=== PATIENT | female | born 1945 | race Caucasian/White ===

== ENCOUNTER 2022-05-22 16:33 | Emergency (ER) | payer MEDICARE, SELFPAY ==
[2022-05-22] VITALS (7 sets, daily range): BP systolic 124–176; BP diastolic 64–140; PULSE 78–89; RESP 18–19; TEMP 36.8; O2SAT 94–98; BMI 26.0
[2022-05-22 16:50] LABS: Appearance,Urine CLEAR (Clear); Bilirubin,Urine Negative (Negative); Blood, Urine TRACE-I (Negative); Color,Urine YELLOW (Yellow); Glucose,Urine (UA) Negative (Negative); Ketones,Urine Negative (Negative); Leukocyte Esterase,Urine 2+ (Negative); Microscopic, Urine URINE MICROSCOPIC (MICROSCOPIC); Nitrate,Urine Negative (Negative); Protein,Urine Negative (Negative); Urobilinogen,Urine 0.2 EU/dl (0.2)
--- NOTE | 2022-05-22 17:04 | CT_ITS ---
PROCEDURE INFORMATION: Exam: CT Cervical Spine Without Contrast Exam date and time: 05/22/2022 5:32 PM Age: 76 years old Clinical indication: Injury or trauma; Fall; Blunt trauma TECHNIQUE: Imaging protocol: Computed tomography of the cervical spine without contrast. Radiation optimization: All CT scans at this facility use at least one of these dose optimization techniques: automated exposure control; mA and/or kV adjustment per patient size (includes targeted exams where dose is matched to clinical indication); or iterative reconstruction. REPORTING DATA: Count of CT and Cardiac NM exams in prior 12 months: This patient has received 2 known CTs and 0 known cardiac nuclear medicine studies in the 12 months prior to the current study. COMPARISON: CT HEAD/BRAIN WO CON 05/22/2022 5:25 PM FINDINGS: Bones/joints: Mild scoliosis of the cervical spine convexity to the left. Osteopenia. Lungs: Lung apices are normal. Soft tissues: Unremarkable. Other findings: Extensive bilateral calcified plaque. IMPRESSION: 1. No evidence of acute osseous injury. 2. Atherosclerotic vascular disease. Findings inadequately visualized . Consider follow-up with carotid Doppler ultrasound.
--- NOTE | 2022-05-22 17:04 | CT_ITS ---
PROCEDURE INFORMATION: Exam: CT Head Without Contrast Exam date and time: 05/22/2022 5:25 PM Age: 76 years old Clinical indication: Injury or trauma; Fall TECHNIQUE: Imaging protocol: Computed tomography of the head without contrast. Radiation optimization: All CT scans at this facility use at least one of these dose optimization techniques: automated exposure control; mA and/or kV adjustment per patient size (includes targeted exams where dose is matched to clinical indication); or iterative reconstruction. REPORTING DATA: Count of CT and Cardiac NM exams in prior 12 months: This patient has received 2 known CTs and 0 known cardiac nuclear medicine studies in the 12 months prior to the current study. COMPARISON: No relevant prior studies available. FINDINGS: Brain: No intracranial hemorrhage. No evidence of acute territorial infarct or cerebral edema. Moderate prominence of the cortical sulci consistent with moderate intracerebral volume loss. Periventricular white matter tract changes consistent with microvascular disease. No mass effect or midline shift. Cerebral ventricles: No ventriculomegaly. Paranasal sinuses: Visualized sinuses are unremarkable. No fluid levels. Mastoid air cells: Visualized mastoid air cells are well aerated. Bones/joints: Unremarkable. No acute fracture. Soft tissues: Unremarkable. IMPRESSION: No evidence of acute intracranial abnormality.
--- NOTE | 2022-05-22 17:04 | CT_ITS ---
PROCEDURE INFORMATION: Exam: CT Lumbar Spine Without Contrast Exam date and time: 05/22/2022 5:37 PM Age: 76 years old Clinical indication: Injury or trauma; Fall TECHNIQUE: Imaging protocol: Computed tomography of the lumbar spine without contrast. Radiation optimization: All CT scans at this facility use at least one of these dose optimization techniques: automated exposure control; mA and/or kV adjustment per patient size (includes targeted exams where dose is matched to clinical indication); or iterative reconstruction. REPORTING DATA: Count of CT and Cardiac NM exams in prior 12 months: This patient has received 3 known CTs and 0 known cardiac nuclear medicine studies in the 12 months prior to the current study. COMPARISON: CT THORACIC SPINE WO CON 05/22/2022 5:34 PM FINDINGS: Tubes, catheters and devices: Incompletely visualized is a catheter in the right posterior parasagittal lumbar soft tissues entering a right sacral foramen, incompletely visualized. Bones/joints: The thoracolumbar spine demonstrates mild to moderate discogenic and spondylitic degenerative changes at multiple levels. This is predominantly manifest by endplate discogenic degenerative changes and marginal osteophytes as well as Schmorl's node degenerative changes. Multilevel facet degenerative arthropathy is present, most prominent involving the mid to lower lumbar spine. Mild vacuum disc phenomenon is also present at L4-L5 and L5-S1 and also at T11-12. There is grade 1 anterior spondylolisthesis of L3 on L4. Alignment is otherwise intact. Concavity of the superior endplate of L1 is present with Schmorl's node changes in this region. Remaining lumbar vertebral body heights are intact. There is no evidence of acute fracture. There are mild to moderate degenerative changes of the sacroiliac joints. Findings within the lower thoracic spine are described in the associated CT of the thoracic spine report from the same date and time. Please reference that report for additional information. Mild diffuse annular bulge at the L1-L2 level is present. No focal disc protrusion. No significant neural foraminal narrowing. Mild to moderate diffuse annular bulge is present at the L2-L3 level without focal disc protrusion. There is minor bilateral inferior neural foraminal narrowing. Moderate diffuse annular bulge at the L3-L4 level produces moderate ventral effacement upon the thecal sac and moderate central canal stenosis. This is accentuated by anterior spondylolisthesis of L3 on L4. There is moderate to marked bilateral neural foraminal narrowing at this level. Moderate diffuse annular bulge at the L4-L5 level produces moderate ventral effacement upon the thecal sac and moderate central canal stenosis. There is moderate to severe bilateral neural foraminal narrowing at this level. Moderate posterior annular bulge is present at the L5-S1 level, approximating the originating S1 nerve roots. There is moderate to marked bilateral neural foraminal narrowing. Stomach and bowel: Mild diverticulosis is present in the distal colon. No definite diverticulitis. Vasculature: The aorta and iliac arteries demonstrate severe atherosclerotic calcification. Atherosclerotic vascular calcifications involve the origin of the celiac and SMA arteries as well as bilateral renal arteries. Cannot entirely exclude stenosis.. Soft tissues: No significant soft tissue edema. No focal soft tissue hematomas. IMPRESSION: 1. No acute posttraumatic osseous abnormality. 2. [id number] discogenic and spondylitic degenerative changes of the lumbar spine
--- NOTE | 2022-05-22 17:04 | XR_ITS ---
PROCEDURE INFORMATION: Exam: XR Chest Exam date and time: 05/22/2022 5:31 PM Age: 76 years old Clinical indication: Injury or trauma; Fall; Blunt trauma (contusions or hematomas) TECHNIQUE: Imaging protocol: Radiologic exam of the chest. Views: 1 view. COMPARISON: No relevant prior studies available. FINDINGS: Lungs: See Diaphragm finding. Pleural spaces: Minimal pleural reactive changes right lateral chest wall. Subtle cortical irregularity. Fractures in this region could not be excluded. Blunting of the left costophrenic angle. Findings may reflect pleural reactive change and be exaggerated by patient positioning. An underlying pleural effusion could not be excluded. Heart/Mediastinum: Cardiomegaly. Diaphragm: Indistinctness of the left hemidiaphragm. A lower lobe region of consolidation or possible hiatal hernia should be considered. Bones/joints: See Pleural spaces finding. IMPRESSION: 1. Minimal pleural reactive changes right lateral chest wall. Subtle cortical irregularity. Fractures in this region could not be excluded. 2. Recommend dedicated rib series for further evaluation. 3. Blunting of the left costophrenic angle. Findings may reflect pleural reactive change and be exaggerated by patient positioning. An underlying pleural effusion could not be excluded.
--- NOTE | 2022-05-22 17:04 | CT_ITS ---
PROCEDURE INFORMATION: Exam: CT Thoracic Spine Without Contrast Exam date and time: 05/22/2022 5:34 PM Age: 76 years old Clinical indication: Injury or trauma; Fall TECHNIQUE: Imaging protocol: Computed tomography of the thoracic spine without contrast. Radiation optimization: All CT scans at this facility use at least one of these dose optimization techniques: automated exposure control; mA and/or kV adjustment per patient size (includes targeted exams where dose is matched to clinical indication); or iterative reconstruction. REPORTING DATA: Count of CT and Cardiac NM exams in prior 12 months: This patient has received 3 known CTs and 0 known cardiac nuclear medicine studies in the 12 months prior to the current study. COMPARISON: CT CERVICAL SPINE WO CON 05/22/2022 5:32 PM FINDINGS: Bones/joints: There is mild diffuse osteopenia. The thoracic spine demonstrates moderate discogenic and spondylitic degenerative changes at multiple levels. This is predominantly manifest by endplate discogenic degenerative changes and marginal osteophytes. Variable levels of vacuum disc phenomenon are also present, most noted in the midthoracic spine. Mild facet degenerative arthropathy . Schmorl's node degenerative changes are present at the T10 through L2 levels. Concavity of the superior endplate of L2 is present with Schmorl's node changes in this region. There is mild loss of vertebral body height involving T5, likely chronic. L0. No acute fractures. There is increase in thoracic kyphosis. There is an S shaped thoracolumbar scoliosis. [id number]-[id number] central posterior disc bulge at the T8-9 and T9-10 levels produce mild to moderate ventral effacement upon the thecal sac. Diffuse annular bulge with mild central posterior bulge at the T10-11 level produces mild ventral effacement upon the thecal sac. Soft tissues: No focal soft tissue hematomas. Vasculature: The aorta demonstrates moderate atherosclerotic calcification. Evaluation is limited without intravenous contrast. Atherosclerotic vascular calcifications involve the origin of the great vessels. Cannot exclude stenosis. The descending thoracic aorta is at the upper limits of normal. Lungs: There is a pulmonary parenchymal calcification consistent with remote granulomatous organism exposure. Scattered strandy densities in the right upper lobe and lingula may reflect parenchymal scarring or atelectasis. Pleural spaces: No pneumothorax. No effusions. Heart: The heart is mildly enlarged. There is a small pericardial effusion. Stomach and bowel: A moderate to large hiatal hernia is present, incompletely visualized. There is an organo-axial configuration to the intrathoracic stomach. Other findings: There is moderate elevation of the right hemidiaphragm. There has been a cholecystectomy.There is calcification of the mitral valve annulus. There is calcification of the aortic valve annulus. There is severe atherosclerotic calcification of the coronary arteries. Evaluation of the chest and abdomen is limited due to the lack of intravenous and gastrointestinal contrast. IMPRESSION: 1. No acute posttraumatic osseous abnormality. 2. Minor loss of vertebral body height involving T5 is likely chronic. 3. Zzkb-ey-wxgrldar superior concavity to the L1 vertebral body, likely chronic. 4. Moderate discogenic and spondylitic degenerative changes of the thoracic spine with increase in thoracic kyphosis. 5. Mild cardiomegaly with mild pericardial fluid. 6. Moderate to large hiatal hernia with organoaxial configuration of the intrathoracic stomach. 7. Moderate central posterior disc protrusions at
--- NOTE | 2022-05-22 17:06 | HMH.EDGENADL ---
Discharge Plan Disposition Patient Disposition: Home, Self-Care Condition: Good Prescriptions Prescriptions: New cefdinir 300 mg capsule 300 mg PO BID 10 Days Qty: 20 0RF No Action lorazepam [Ativan] 0.5 mg tablet 0.5 mg PO TID PRN (Reason: anxiety) Qty: 63 0RF Referrals Follow up/Referrals: Sly Ny MD [Primary Care Provider] - See instructions Activity Restrictions/Add. Instructions Additional Instructions/Restrictions: Tylenol as needed for pain. Follow-up with primary care provider for further care. Additional instructions for URINARY TRACT INFECTION: Take antibiotic as prescribed. See your physician in 2-3 days for follow up and culture results. Return immediately if you have an uncontrollable fever greater than 102 degrees, severe back or abdominal pain, inability to urinate, or repetitive vomiting. Clinical Impressions Clinical Impression: Fall, Dizziness, Closed rib fracture, Urinary tract infection, Atrial fibrillation, chronic, Anemia Instructions Patient Instructions: DI for Rib Fracture, DI for Urinary Tract Infection (UTI), DI for Iron Deficiency Anemia-Adult, How to Prevent Falls, DI for Dizziness-Nonvertigo Discharge ED Provider: Isak Bennett General Adult HPI General Chief complaint: Fall Stated complaint: Fall Time Seen by Provider: 05/22/22 17:00 Mode of Arrival: Ambulatory Source of Information: Patient Limitations: Physical Limitations Description of Symptoms (Recalled from ER Triage Doc. by RN): Pt from [facility], reports I felt dizzy while standing and told them and they just watched me fall , denies LOC, reports striking posterior occiput, EMV 15 History of Present Illness HPI narrative: Brought in by ambulance from [facility]. States that she was standing talking to a couple of nurses and began feeling very dizzy. He states that she told him she was feeling dizzy but the next thing she knew she was lying flat on her back on the floor. She says that she hit her head. She does have a headache. She has some soreness in her lower back. She denies any other injuries. No nausea or vomiting. States she has not recently been ill preceding this. States she does have a prior history of dizzy spells. She had 1 view x-rays of her cervical, thoracic, and lumbar spine and was sent to the emergency department for further imaging and work-up. She has a history of atrial fibrillation and is anticoagulated with Eliquis. Related Data Previous Rx's Medication Instructions Recorded lorazepam 0.5 mg tablet (Ativan) 0.5 mg PO TID PRN anxiety #63 tabs 05/13/22 cefdinir 300 mg capsule 300 mg PO BID 10 days #20 caps 05/22/22 Allergies Allergy/AdvReac Type Severity Reaction Status Date / Time Unable to Assess Allergy Unverified 05/13/22 14:22 [facility] Disclaimer: The information contained in this section may have been updated after the patient was seen, as this information can be updated by other users. Social History Smoking Status: Never smoker ROS Obtained: Yes Systems reviewed as appropriate & no additional complaints except as documented Constitutional Constitutional: Denies fever(s), Reports headache(s) and Denies weakness Eyes Eyes: Denies change in vision ENT Ears, Nose, Mouth, and Throat: Reports dizziness, Reports headache(s), Denies nasal discharge and Denies sore throat Cardiovascular Cardiovascular: Denies chest pain Respiratory Respiratory: Denies shortness of breath and Denies cough Gastrointestinal Gastrointestingal: Denies abdominal pain, constipation, diarrhea or vomiting Genitourinary Female Genitourinary: Denies difficulty voiding, Denies dysuria and Denies flank pain Musculoskeletal Musculoskeletal: Denies numbness Neurologic Neurologic: Reports dizziness, Reports headache(s), Denies numbness and Denies weakness Physical Exam General General appearance: alert and in no apparent distress Head Head exam: a
--- NOTE | 2022-05-22 17:16 | ECG_ITS ---
APPROVED REPORT Exam: Resting ECG HR:73 bpm ECG Measurements Heart Rate 73 AXES QRSd 94 QRS 82 QT 398 T 15 QTc 424 Conclusion ATRIAL FIBRILLATION NONSPECIFIC ST & T-WAVE ABNORMALITY ABNORMAL RHYTHM ECG UNCONFIRMED REPORT Electronically signed by : Chris Duncan MD 05/23/2022 15:39:30
[2022-05-22 17:24] LABS: Bacteria,Urine Trace /lpf; RBC,Urine Occasional #/hpf (0-3); Squamous Epithelial Cell,Urine Occasional #/hpf (0-5)
--- NOTE | 2022-05-22 17:24 | XR_ITS ---
PROCEDURE INFORMATION: Exam: XR Pelvis Exam date and time: 05/22/2022 5:54 PM Age: 76 years old Clinical indication: Injury or trauma; Fall; Blunt trauma (contusions or hematomas); Bilateral; Hip TECHNIQUE: Imaging protocol: Radiologic exam of the pelvis. Views: 1 or 2 view. COMPARISON: CT LUMBAR SPINE WO CON 05/22/2022 5:37 PM FINDINGS: Bones/joints: Postoperative changes involving the right hip are present in near anatomic alignment. As seen, there are mild degenerative changes of the sacroiliac joints. There is mild diffuse osteopenia. The thoracolumbar spine demonstrates mild degenerative changes at multiple levels. There is no evidence of acute fracture or dislocation. Soft tissues: The visualized iliac arteries demonstrate mild atherosclerotic calcification. Gastrointestinal tract: Visualized bowel gas pattern is within range of normal. Other findings: Battery pack overlying the right superior hip region limits evaluation of adjacent structures. IMPRESSION: No acute posttraumatic abnormality with mildly limited visualization of the right hip and superior acetabulum.
--- NOTE | 2022-05-22 17:45 | PC.NURSE ---
pt arrived back to room from radiology
--- NOTE | 2022-05-22 17:50 | CT_ITS ---
PROCEDURE INFORMATION: Exam: CT Chest Without Contrast; Diagnostic Exam date and time: 05/22/2022 6:14 PM Age: 76 years old Clinical indication: Pain; On breathing; Patient HX: Patient fell, hurts to breath. Vrad radiologist found abnormality on portable chest x-ray. ; Additional info: Fall TECHNIQUE: Imaging protocol: Diagnostic computed tomography of the chest without contrast. 3D rendering (Not supervised by radiologist): MIP and/or 3D reconstructed images were created by the technologist. Radiation optimization: All CT scans at this facility use at least one of these dose optimization techniques: automated exposure control; mA and/or kV adjustment per patient size (includes targeted exams where dose is matched to clinical indication); or iterative reconstruction. REPORTING DATA: Count of CT and Cardiac NM exams in prior 12 months: This patient has received 4 known CTs and 0 known cardiac nuclear medicine studies in the 12 months prior to the current study. COMPARISON: CR XR CHEST PORTABLE 05/22/2022 5:31 PM FINDINGS: Thyroid: The thyroid gland is normal. Lungs: Linear strandy densities in the right upper lobe suggest parenchymal scarring or atelectasis. Minor linear densities in the left lower lobe also likely reflect atelectasis or parenchymal scarring. Granuloma in the left lower lobe is present. No focal areas of consolidation. Pleural spaces: No pneumothorax. There are no pleural effusions. Heart: The heart is mildly enlarged. There is a small pericardial fluid collection present. There is calcification of the mitral valve annulus. There is calcification of the aortic valve annulus. There is severe atherosclerotic calcification of the coronary arteries. Lymph nodes: No enlarged lymph nodes. Calcified mediastinal lymph nodes indicate prior granulomatous disease. Vasculature: The thoracic aorta demonstrates moderate atherosclerotic calcification. Ascending thoracic aorta is at the upper limits of normal measuring 3.5 x 3.8 cm. Diaphragm: A moderate hiatal hernia is present. Evaluation is limited without gastrointestinal contrast. There is an organo-axial positioning of the intrathoracic stomach. There is [id number]-xf-peicvdnl elevation of the right hemidiaphragm. Gallbladder and bile ducts: There has been a cholecystectomy. Bones/joints: There is a mild convex right thoracic scoliosis. There is a remote rib fracture involving the right posterolateral 7th and 8 ribs. There is a subacute or acute rib fracture involving the left posterolateral 7th rib. There is mild associated pleural reaction/edema/hematoma. Cannot exclude subtle acute fracture involving the 5th rib. The thoracic spine demonstrates moderate degenerative changes at multiple levels. There is mild increase in thoracic kyphosis. Soft tissues: No focal soft tissue hematomas. No significant soft tissue edema. Other findings: Dental amalgam artifact limits evaluation of adjacent structures. Evaluation is limited by the lack of intravenous contrast. There is mildly excessive colonic stool content. IMPRESSION: 1. Linear strandy densities in the right upper lobe and left lower lobe suggest parenchymal scarring or atelectasis. 2. Acute versus subacute rib fracture involving the left posterolateral 7th rib. Suspect subtle acute fracture involving the left 5th rib. 3. Remote rib fractures involving the right posterolateral 7th and 8 ribs. 4. Mild cardiomegaly. 5. Small pericardial fluid collection. 6. Moderate hiatal hernia with organoaxial positioning of the intrathoracic stomach.
--- NOTE | 2022-05-22 18:18 | PC.NURSE ---
pt returned from rad
--- NOTE | 2022-05-22 18:18 | PC.NURSE ---
Pt returned from CT scan to room 5
[2022-05-22 18:19] LABS: Basophils # 0.1 K/mm3 (0-0.2); Basophils % 1.3 % (0.1-2.0); Eosinophils # 0.4 K/mm3 (0.0-0.4); Eosinophils % 4.1 % (0.1-12.0); Hematocrit 28.8 % (37.0-47.0); Hemoglobin 8.8 g/dL (12.2-16.2); Lymphocytes # 1.6 K/mm3 (0.7-4.5); Mean Corpuscular HGB Conc 30.4 g/dL (31.8-35.4); Mean Corpuscular Hemoglobin 22.4 pg (27.0-31.2); Mean Corpuscular Volume 73.8 fl (81-99); Mean Platelet Volume 7.5 fl (7.4-10.4); Monocytes # 0.7 K/mm3 (0.1-1.0); Neutrophils % 68.6 % (37.0-80.0); Platelet Count 675 K/mm3 (142-424); Red Cell Distribution Width 23.9 % (11.5-17.5); White Blood Count 8.8 K/mm3 (4.8-10.8)
[2022-05-22 18:24] LABS: Chloride 101 mmol/L (98-107); Potassium 4.3 mmoL/L (3.5-5.1); Sodium 138 mmol/L (136-145)
[2022-05-22 18:26] LABS: Alanine Aminotransferase 17 U/L (12-78); Aspartate Amino Transferase 41 U/L (14-36); Blood Urea Nitrogen 19 mg/dl (7-17); Creatinine Clearance Estimated 46 mL/min (50-200); Estimated Glomerular Filt Rate 48 ml/min (>60); GFR (African American) 58 ML/MIN (>60)
[2022-05-22 18:27] LABS: Albumin Level 4.2 g/dl (3.5-5.0); Albumin/Globulin Ratio 1.2 (1.1-1.8); Alkaline Phosphatase 113 U/L (38-126); Anion Gap 12.3 mEq/L (5-15); Bilirubin,Total 0.6 mg/dl (0.2-1.3); Carbon Dioxide 29 mmol/L (22.0-30.0); Globulin 3.5 g/dL (1.3-3.2); Glucose 89 mg/dl (74-100); Total Protein,Serum 7.7 g/dl (6.3-8.2)
[2022-05-22 18:56] LABS: Troponin I < 0.01 ng/ml (0.00-0.034)
== END 2022-05-22 21:02 | disposition home or self-care (01) ==
PROVIDERS: Emergency Provider Emergency Medicine; PCP Emergency Medicine
DX: N39.0 Urinary tract infection, site not specified (principal); B96.1 Klebsiella pneumoniae [K. pneumoniae] as the cause of diseases classified elsewhere; S22.42XA Multiple fractures of ribs, left side, initial encounter for closed fracture; I48.20 Chronic atrial fibrillation, unspecified; D64.9 Anemia, unspecified; R42 Dizziness and giddiness; W18.30XA Fall on same level, unspecified, initial encounter
CPT/HCPCS: 70450; 71045; 71250; 72125; 72128; 72131; 72170; 80053; 81001; 84484; 85025; 87086; 87088; 87186; 93005; 99285; J0696

== ENCOUNTER → 2022-07-03 11:35 | Outpatient (CLI) | payer MEDICARE, SELFPAY ==
[2022-07-03 13:23] LABS: Basophils # 0.1 K/mm3 (0-0.2); Basophils % 0.7 % (0.1-2.0); Eosinophils # 0.1 K/mm3 (0.0-0.4); Eosinophils % 1.3 % (0.1-12.0); Hematocrit 36.9 % (37.0-47.0); Hemoglobin 10.7 g/dL (12.2-16.2); Lymphocytes # 0.9 K/mm3 (0.7-4.5); Lymphocytes % 8.3 % (10-50); Mean Corpuscular HGB Conc 28.9 g/dL (31.8-35.4); Mean Corpuscular Hemoglobin 23.2 pg (27.0-31.2); Mean Corpuscular Volume 80.1 fl (81-99); Mean Platelet Volume 6.5 fl (7.4-10.4); Monocytes # 0.7 K/mm3 (0.1-1.0); Monocytes % 6.2 % (1.7-9.3); Neutrophils # 9.3 K/mm3 (1.8-7.8); Neutrophils % 83.5 % (37.0-80.0); Platelet Count 709 K/mm3 (142-424); Red Cell Distribution Width 20.6 % (11.5-17.5); White Blood Count 11.1 K/mm3 (4.8-10.8)
[2022-07-03 13:55] LABS: Iron 30 ug/dL (37-170)
[2022-07-03 14:05] LABS: Total Iron Binding Capacity 404 ug/dL (265-497)
[2022-07-03 14:32] LABS: Ferritin 12.6 ng/ml (11.1-264)
== END ==
PROVIDERS: PCP Family Medicine; Visit Provider Internal Medicine Medical Oncology
DX: D50.9 Iron deficiency anemia, unspecified (principal)
CPT/HCPCS: 36415; 82728; 83540; 83550; 85025

== ENCOUNTER 2022-07-09 20:23 | Emergency (ER) | payer MEDICARE, SELFPAY ==
[2022-07-09 20:27] VITALS: BP 134/85; PULSE 81; RESP 18; TEMP 36.6; O2SAT 94; BMI 27.4
--- NOTE | 2022-07-09 20:38 | CT_ITS ---
PROCEDURE INFORMATION: Exam: CT Chest Without Contrast; Diagnostic Exam date and time: 07/09/2022 8:54 PM Age: 76 years old Clinical indication: Injury or trauma; Fall; Blunt trauma (contusions or hematomas); Additional info: Fall, prior fall couple months ago TECHNIQUE: Imaging protocol: Diagnostic computed tomography of the chest without contrast. 3D rendering (Not supervised by radiologist): MIP and/or 3D reconstructed images were created by the technologist. Radiation optimization: All CT scans at this facility use at least one of these dose optimization techniques: automated exposure control; mA and/or kV adjustment per patient size (includes targeted exams where dose is matched to clinical indication); or iterative reconstruction. REPORTING DATA: Count of CT and Cardiac NM exams in prior 12 months: This patient has received 5 known CTs and 0 known cardiac nuclear medicine studies in the 12 months prior to the current study. COMPARISON: CT CHEST WO CON 05/22/2022 6:14 PM FINDINGS: Lungs: Streaky dependent pulmonary opacities. Pleural spaces: No pneumothorax. No pleural effusion. Heart: Cardiomegaly. Coronary arteries: Coronary artery calcifications. Lymph nodes: No enlarged lymph nodes. Vasculature: Limited evaluation without contrast. No aortic aneurysm. Diaphragm: Large hiatal hernia. Bones/joints: Acute mildly displaced fracture of right posterior rib number 10. Subacute to chronic appearing fractures of right ribs number 5, 6, 7, and 8 and left ribs number 5, 6, 7, and 8. Mild vertebral body height loss at T5. Soft tissues: Asymmetric soft tissue density within the right breast. IMPRESSION: 1. Acute mildly displaced fracture of right posterior rib number 10. 2. Subacute to chronic appearing fractures of right ribs number 5, 6, 7, and 8 and left ribs number 5, 6, 7, and 8. 3. Mild vertebral body height loss at T5 which is age indeterminate. 4. Streaky dependent pulmonary opacities which may be hypoventilatory however pneumonitis should be clinically excluded. 5. Cardiomegaly. 6. Large hiatal hernia. 7. Asymmetric soft tissue density within the right breast for which correlation with mammography is recommended. PROCEDURE INFORMATION: Exam: CT Abdomen Without Contrast Exam date and time: 07/09/2022 8:54 PM Age: 76 years old Clinical indication: Injury or trauma; Fall; Blunt trauma (contusions or hematomas); Additional info: Fall, prior fall couple months ago TECHNIQUE: Imaging protocol: Computed tomography of the abdomen without contrast. REPORTING DATA: Count of CT and Cardiac NM exams in prior 12 months: This patient has received 5 known CTs and 0 known cardiac nuclear medicine studies in the 12 months prior to the current study. COMPARISON: CT CHEST WO CON 05/22/2022 6:14 PM FINDINGS: Diaphragm: Large hiatal hernia. Liver: Normal. No mass. Gallbladder and bile ducts: Status post cholecystectomy. Pancreas: Normal. No ductal dilation. Spleen: Normal. No splenomegaly. Adrenal glands: Normal. No mass. Kidneys and ureters: Normal. No hydronephrosis. Stomach and bowel: Moderate to large stool burden within the colon. No bowel obstruction. Intraperitoneal space: Unremarkable. No free air. No significant fluid collection. Vasculature: Calcified aortic atherosclerosis. No aneurysm. Lymph nodes: Unremarkable. No enlarged lymph nodes. Bones/joints: Degenerative changes. No acute fracture. No dislocation. Soft tissues: Unremarkable. IMPRESSION: Moderate to large stool burden within the colon. Electronically signed by Aries Maloney MD at 05
--- NOTE | 2022-07-09 20:38 | XR_ITS ---
PROCEDURE INFORMATION: Exam: XR Pelvis Exam date and time: 07/09/2022 9:11 PM Age: 76 years old Clinical indication: Injury or trauma; Fall; Blunt trauma (contusions or hematomas); Does not apply; Pelvic region TECHNIQUE: Imaging protocol: Radiologic exam of the pelvis. Views: 1 or 2 view. COMPARISON: No relevant prior studies available. FINDINGS: Tubes, catheters and devices: Electronic device overlying the right pelvis. Bones/joints: Surgical plate overlying the lateral proximal right femur with dynamic compression screw traversing the neck and head. Osteopenia. Degenerative changes of the lumbosacral spine. No acute fracture. Soft tissues: Unremarkable. IMPRESSION: Chronic changes without definite acute process.
--- NOTE | 2022-07-09 20:38 | XR_ITS ---
PROCEDURE INFORMATION: Exam: XR Chest Exam date and time: 07/09/2022 9:11 PM Age: 76 years old Clinical indication: Injury or trauma; Fall; Blunt trauma (contusions or hematomas); Additional info: Fall, prior fall couple months ago TECHNIQUE: Imaging protocol: Radiologic exam of the chest. Views: 1 view. COMPARISON: CT CHEST WO CON 07/09/2022 8:54 PM FINDINGS: Lungs: Retrocardiac opacity. Pleural spaces: No pneumothorax. Heart/Mediastinum: Cardiomegaly. Elevation of the right hemidiaphragm. Large hiatal hernia. Bones/joints: No acute abnormality. IMPRESSION: 1. Retrocardiac opacity which may be on the basis of atelectasis or pneumonia. 2. Cardiomegaly. 3. Large hiatal hernia.
[2022-07-09 20:45] VITALS: BP 134/85; PULSE 78; RESP 20; O2SAT 97
[2022-07-09 20:56] LABS: Basophils # 0.1 K/mm3 (0-0.2); Basophils % 0.9 % (0.1-2.0); Chloride 89 mmol/L (98-107); Eosinophils # 0.2 K/mm3 (0.0-0.4); Eosinophils % 2.7 % (0.1-12.0); Hematocrit 34.5 % (37.0-47.0); Hemoglobin 10.6 g/dL (12.2-16.2); Lymphocytes # 1.6 K/mm3 (0.7-4.5); Lymphocytes % 17.5 % (10-50); Mean Corpuscular HGB Conc 30.6 g/dL (31.8-35.4); Mean Corpuscular Hemoglobin 23.7 pg (27.0-31.2); Mean Corpuscular Volume 77.5 fl (81-99); Mean Platelet Volume 7.6 fl (7.4-10.4); Monocytes # 0.8 K/mm3 (0.1-1.0); Monocytes % 9.2 % (1.7-9.3); Neutrophils # 6.4 K/mm3 (1.8-7.8); Neutrophils % 69.8 % (37.0-80.0); Platelet Count 539 K/mm3 (142-424); Potassium 4.3 mmoL/L (3.5-5.1); Red Blood Count 4.46 M/mm3 (4.20-5.40); Red Cell Distribution Width 20.5 % (11.5-17.5); Sodium 133 mmol/L (136-145); White Blood Count 9.1 K/mm3 (4.8-10.8)
[2022-07-09 20:58] LABS: Blood Urea Nitrogen 42 mg/dl (7-17); Creatinine Clearance Estimated 39 mL/min (50-200); Estimated Glomerular Filt Rate 37 ml/min (>60); GFR (African American) 44 ML/MIN (>60)
[2022-07-09 20:59] LABS: Alanine Aminotransferase 20 U/L (12-78); Albumin Level 3.8 g/dl (3.5-5.0); Albumin/Globulin Ratio 1.1 (1.1-1.8); Alkaline Phosphatase 72 U/L (38-126); Anion Gap 12.3 mEq/L (5-15); Aspartate Amino Transferase 30 U/L (14-36); Bilirubin,Total 0.2 mg/dl (0.2-1.3); Calcium 8.7 mg/dl (8.4-10.2); Carbon Dioxide 36 mmol/L (22.0-30.0); Globulin 3.4 g/dL (1.3-3.2); Glucose 100 mg/dl (74-100); Total Protein,Serum 7.2 g/dl (6.3-8.2)
--- NOTE | 2022-07-09 21:05 | HMH.EDFALL ---
Discharge Plan Disposition Patient Disposition: Xfer SNF Prescriptions Prescriptions: No Action lorazepam [Ativan] 0.5 mg tablet 0.5 mg PO TID PRN (Reason: anxiety) Qty: 90 5RF tramadol 50 mg tablet 50 mg PO Q8H PRN (Reason: pain) Qty: 90 5RF Referrals Follow up/Referrals: King Ash MD [Primary Care Provider] - See instructions Clinical Impressions Clinical Impression: Fall, Closed rib fracture Instructions Patient Instructions: DI for Rib Fracture Discharge ED Provider: Anant (ED)Sly HPI General Chief Complaint: Fall Stated Complaint: Fall Time Seen by Provider: 07/09/22 20:30 Mode of Arrival: EMS Source of Information: Patient, EMS and Medical Record Limitations: No Limitations Description of Symptoms (Recalled from ER Triage Doc. by RN): Pt fell off the toilet yesterday per [facility] staff and ems. Pt was ordered xray today but they were too painful so she was sent here for evaluation. Pt states that she never fell, that she was getting off of the toilet and the toilet fell and hit her in the left ribs and she has been having severe delmis since. History of Present Illness HPI Narrative: fall at [facility] as noted above and has rib pain - hx of prev rib fx complaint: fall Onset (ago): day(s) Fall from: other (off toilet ) Fall witnessed: no Place fall occurred: [facility] Loss of consciousness: none Prolonged down time: no Symptoms prior to fall: none Context: history of frequent falls Location of injury: chest Severity: moderate Associated symptoms (after fall): denies Related Data Previous Rx's Medication Instructions Recorded lorazepam 0.5 mg tablet (Ativan) 0.5 mg PO TID PRN anxiety #90 tabs 07/02/22 tramadol 50 mg tablet 50 mg PO Q8H PRN pain #90 tabs 07/05/22 Allergies Allergy/AdvReac Type Severity Reaction Status Date / Time hydrocodone Allergy Verified 07/03/22 10:38 [facility] Disclaimer: The information contained in this section may have been updated after the patient was seen, as this information can be updated by other users. Medical History (Updated 07/09/22 @ 21:49 by Sly Ny (ED)MD) Anxiety CHF (congestive heart failure) HTN (hypertension), benign Surgical History (Updated 07/03/22 @ 11:05 by Paulette Rucker CMA) History of cholecystectomy History of hysterectomy Social History (Updated 07/03/22 @ 11:05 by Paulette Rucker CMA) Smoking Status: Never smoker alcohol intake: never current occupational status: retired Travel in the last 8 weeks: None ROS Obtained: Yes All systems reviewed & no additional complaints except as documented Physical Exam General General appearance: alert Head Head exam: normocephalic Eye Eye exam: Present PERRL and EOMI ENT ENT exam: Present mucous membranes moist Neck Neck exam: Present trachea midline; Absent tenderness Chest Chest inspection: Present tenderness Respiratory Respiratory exam: Present other (dec bs bilat ); Absent respiratory distress Cardiovascular Cardiovascular exam: Present regular rate and systolic murmur Abdominal Exam Abdominal exam: Present soft Extremities Exam Extremities exam: Present full ROM Neurological Exam Neurological exam: Present alert, oriented X3 and CN II-XII intact; Absent motor sensory deficit Psychiatric Psychiatric exam: Present normal affect Skin Skin exam: Present intact Medical Decision Making Medical Records Medical records reviewed: Yes I reviewed the patient's medical records. Michel Inquiry Pt receiving controlled substance: No Vital Signs: 07/09/22 20:27 Temperature 98 F Temperature Source Oral Pulse Rate [Apical] 81 Respiratory Rate 18 Blood Pressure [Right Arm] 134/85 Blood Pressure Mean [Right Arm] 101 Blood Pressure Source [Right Arm] Automatic Cuff Blood Pressure Position [Right Arm] Sitting 02 Sat by Pulse Oximetry 94 L Oxygen Delivery Method Room Air Lab Data Lab results revi
[2022-07-09 21:30] VITALS: BP 126/66; PULSE 82; RESP 14; O2SAT 95
[2022-07-09 22:01] VITALS: BP 134/69; PULSE 73; RESP 13; O2SAT 94
[2022-07-09 23:30] VITALS: BP 126/74; PULSE 71; RESP 13; O2SAT 95
[2022-07-10 00:30] VITALS: BP 122/71; RESP 12; O2SAT 96
[2022-07-10 01:30] VITALS: BP 120/70; PULSE 68; RESP 18; TEMP 36.6; O2SAT 99
== END 2022-07-10 01:32 ==
PROVIDERS: Emergency Provider Emergency Medicine; PCP Family Medicine
DX: S22.31XA Fracture of one rib, right side, initial encounter for closed fracture (principal); W18.12XA Fall from or off toilet with subsequent striking against object, initial encounter; Y92.129 Unspecified place in nursing home as the place of occurrence of the external cause
CPT/HCPCS: 71045; 71250; 72170; 80053; 85025; 96374; 99284; 99285; J0131

== ENCOUNTER 2022-07-30 10:03 | Outpatient (CLI) | payer MEDICARE, SELFPAY ==
[2022-07-30 10:33] VITALS: BP 131/64; PULSE 73; RESP 18; TEMP 36.3; O2SAT 100
[2022-07-30 11:15] VITALS: BP 142/81; PULSE 81; RESP 18
== END 2022-07-30 11:15 | disposition home or self-care (01) ==
LOC: INF 10:04
PROVIDERS: PCP Emergency Medicine; Visit Provider Internal Medicine Medical Oncology
DX: D50.9 Iron deficiency anemia, unspecified (principal)
CPT/HCPCS: 96365; J1756

== ENCOUNTER 2022-08-06 09:52 | Outpatient (CLI) | payer MEDICARE, SELFPAY ==
[2022-08-06 10:20] VITALS: BP 142/68; PULSE 75; RESP 18; O2SAT 96
[2022-08-06 11:14] VITALS: BP 163/94; PULSE 84; RESP 18
== END 2022-08-06 11:22 | disposition home or self-care (01) ==
LOC: INF 09:53
PROVIDERS: PCP Emergency Medicine; Visit Provider Internal Medicine Medical Oncology
DX: D50.9 Iron deficiency anemia, unspecified (principal)
CPT/HCPCS: 96365; J1756

== ENCOUNTER 2022-08-13 09:52 | Outpatient (CLI) | payer MEDICARE, SELFPAY ==
[2022-08-13 10:14] VITALS: BP 130/65; PULSE 72; RESP 18; O2SAT 98
[2022-08-13 11:24] VITALS: BP 150/95; PULSE 71; RESP 18; O2SAT 96
== END 2022-08-13 11:25 | disposition home or self-care (01) ==
LOC: INF 09:55
PROVIDERS: PCP Emergency Medicine; Visit Provider Internal Medicine Medical Oncology
DX: D50.9 Iron deficiency anemia, unspecified (principal)
CPT/HCPCS: 96365; J1756

== ENCOUNTER 2022-08-20 09:39 | Outpatient (CLI) | payer MEDICARE, SELFPAY ==
[2022-08-20 10:20] VITALS: BP 126/65; PULSE 72; RESP 18; TEMP 36.8; O2SAT 97
[2022-08-20 11:00] VITALS: BP 130/72; PULSE 73
== END 2022-08-20 11:05 | disposition home or self-care (01) ==
LOC: INF 09:40
PROVIDERS: PCP Emergency Medicine; Visit Provider Internal Medicine Medical Oncology
DX: D50.9 Iron deficiency anemia, unspecified (principal)
CPT/HCPCS: 96365; J1756

== ENCOUNTER 2023-05-11 12:26 | Outpatient (CLI) | payer MEDICARE, SELFPAY ==
--- NOTE | 2023-05-11 12:44 | US_ITS ---
FINAL REPORT CLINICAL HISTORY: DM, HTN, TIA/CVA, Great toes purplish in color and cool to touch FINDINGS: BILATERAL ANKLE BRACHIAL INDICES Pressure indices are as follows are: RIGHT LOWER EXTREMITY Ankle brachial pressure index: 1.0 Toe brachial pressure index: 0.6 COMMENTS: Normal LEFT LOWER EXTREMITY Ankle brachial pressure index: 0.9 Toe brachial pressure index: 0.6 COMMENTS: Borderline normal IMPRESSION: No evidence of significant obstructive peripheral vascular disease of the right lower extremity. Borderline peripheral vascular disease in the left lower extremity. Reviewed, Interpreted and Dictated by Ananda Padilla III, MD Transcribed by Fartun Robison Authenticated and [facility]
== END 2023-05-11 23:59 ==
PROVIDERS: PCP Family Medicine; Visit Provider Family Medicine
DX: R09.89 Other specified symptoms and signs involving the circulatory and respiratory systems (principal); D64.9 Anemia, unspecified; I73.9 Peripheral vascular disease, unspecified; I10 Essential (primary) hypertension
CPT/HCPCS: 93923

== ENCOUNTER 2024-05-18 10:35 | Outpatient (CLI) | payer MEDICARE, SELFPAY ==
--- NOTE | 2024-05-18 10:42 | FL_ITS ---
FINAL REPORT CLINICAL HISTORY: DIET CONSISTENCY CONCERNS 18.04mGy 3.22 min FINDINGS: FLUOROSCOPY LESS THAN 1 HOUR HISTORY: Fluoroscopy guidance. FINDINGS: Fluoroscopic guidance was provided for modified barium swallow. A total of 3.22 minutes of fluoroscopy time were used. DAP: 18.04 mGy IMPRESSION: As above. Reviewed, Interpreted and Dictated by Jeffrey Painter MD Transcribed by Lesley Dennis Authenticated and [facility]
[2024-05-18] MEDS: BARIUM SULFATE(LIQUID E-Z-PAQUE);355ML BOTTLE 355 ML PO (11:22)
--- NOTE | 2024-05-18 11:44 | HMH.SLMBS2 ---
Speech & Language Evaluation Speech/Lang Modified Barium Swallow Start: 05/18/24 11:20 Freq: once Status: Complete Protocol: Document 05/18/24 11:20 IZABELLA (Rec: 05/18/24 11:43 [email or web address] [id number]) TRAFFIC SIGN SUPERVISOR Evaluation Information TRAFFIC SIGN SUPERVISOR Evaluation Information Date of Evaluation: 05/18/24 Time of Evaluation: 10:51 Evaluation Type Initial Certification Reason for Referral diet consistency concerns per MD order Does Patient Qualify for Service No Qualify/Failure Comment Based on clinical observations made throughout MBSS, mastication and manipulation of bolus and swallowing are WFL given age. Diet recommendations include mechanical soft/easy to chew solids with thin liquids and no straws; with adherence to diet recommendations, aspiration precautions, and compensatory strategies no skilled speech therapy services are warranted at this time. MBS Recommendations Diet Dietary Recommendations Mechanical Soft,Thin Liquids SL Swallow Guidelines Alt bite w/sip thru meal, Standard Aspiration Prec., Reflux precautions Treatment/Strategies Strategy/Precaution Recommended Sitting Upright (90 deg), Double Swallow,No Straw,Small Bites and Sips,Alternate Liquids/Solids Referral/Other Recommended Referrals GI Consult TRAFFIC SIGN SUPERVISOR Patient History Section TRAFFIC SIGN SUPERVISOR Patient History Primary Medical History Pt accompanied by daughter who provides her history; pt has history of dysphagia and reflux. She has reportedly had esophageal dilation x2. No other history provided as daughter had to leave room. Does Patient have Reflux or GERD? Yes Does Patient Experience Coughing or No Choking Episodes? Does Patient Avoid Certain Food Textures No /Consistencies? Does Patient Utilize Compensatory No Strategies During Meals? Has Patient Experienced Significant No Weight Loss? Does Pt have Hx of Recurrent Pneumonias No or Respiratory Infections? Has Patient Noticed Change in Vocal No Quality? Mod Barium Swallow Study Patient Orientation Oral Expression Ability Mild Impairment Ability to Follow Directions Good Is Patient able to Perform Volitional Yes Throat Clear? Is Patient able to Perform Volitional Yes Cough? Mod Barium Swallow Set Up Radiologist Ananda Padilla Patient Presentation: Awake,Alert,Appropriate, Follows Commands Bolus Consistencies Trialed: Thin Liquids,Pudding,Puree, Mechanical Soft,Mixed,Pill ( Barium Tablet) MBSS Observations Consistency & Strategy Trial Mechanical Soft Penetration/Aspiration Scale 2 PAS Amount Trace Pharyngeal Residual 0-9% Puree Spoon Full Penetration/Aspiration Scale 2 PAS Amount Trace Pharyngeal Residual 0-9% Puree Half Spoon Penetration/Aspiration Scale 1 Pharyngeal Residual 0-9% Pudding Spoon Full Penetration/Aspiration Scale 2 PAS Amount Trace Pharyngeal Residual 0-9% Pudding Half Spoon Penetration/Aspiration Scale 1 Pharyngeal Residual 0-9% Thin Straw Sip Penetration/Aspiration Scale 3 PAS Amount Trace Pharyngeal Residual 0-9% Thin Subsequent Sips from Cup Penetration/Aspiration Scale 1 Pharyngeal Residual 0-9% Thin Open Cup Sip Penetration/Aspiration Scale 1 Pharyngeal Residual 0-9% Mod Barium Swallow Impressions Oral Phase Summary & Impressions Oral Phase: Impression Minimal Impairment Oral Phase: Labial Closure No Impairment (WFL) Oral Phase: Bolus Formation Pooling L/R No Impairment (WFL) Oral Phase: Bolus Formation Under Tongue No Impairment (WFL) Oral Phase: Bolus Formation Scattered Minimal Impairment Loss Oral Phase: Mastication Rotary Chew Mild Impairment Oral Phase: Mastication Munching Mild Impairment Oral Phase: Mastication Lateralization Mild Impairment Oral Phase: Lingual Movement Mild Impairment Oral Phase: Residue Clearing Mild Impairment Oral Phase: Other Observations Increased time experienced for mastication Oral Phase: Summary Minimal impairment of the oral preparatory and oral transit phases of the swallow 2' difficulty managing bolus size and mastication. Pharyngeal Phase Summary & Impressions Pharyngeal Phase: Impression Mild Impairment Pharyngeal Phase: A/P Lingual Propulsion Mild Impairment Spills Pharyngeal Phase: Swallow Response Delay Mild Impairment Pharyngeal Phase: Base of Tongue Minimal Impairment Pharyngeal Phase: Epiglottic Coverage Mild Impairment Pharyngeal Phase: Laryngeal Elevation Mild Impairment Pharyngeal Phase: Vallecular Retention Mild Impairment Clearing Pharyngeal Phase: Pharyngeal Wall Mild Impairment Residue Clearing Pharyngeal Phase: Piriform Sinus Mild Impairment Retention Pharyngeal Phase: Summary Mild impairment of the pharyngeal phase of the swallow 2' delayed initiation of the swallow, residuals observed in the valleculae 2' reduced hyolaryngeal excursion and decreased epiglottic coverage. Pt also had residuals observed PPW and piriform sinuses that required effortful swallow and/or thin liquid or puree wash. Aspiration Aspiration? No Silent Aspiration? No TRAFFIC SIGN SUPERVISOR MBSS Goals Education Instructions provided Discussed results of MBSS, diet recommendations, aspiration risks and precautions, and compensatory strategies with pt and caregiver who expressed understanding. TRAFFIC SIGN SUPERVISOR also discussed GI referral. Patient/Caregiver Able to Recall Able to recall/restate Information Reinforcement needed No PHYSICIAN CERTIFICATION: I certify the specified therapy services for Heidi Tejeda are required, authorized, and reviewed every 30 days.
== END 2024-05-18 23:59 | disposition home or self-care (01) ==
LOC: RAD 10:37
PROVIDERS: PCP Family Medicine; Visit Provider Pediatrics
DX: R47.02 Dysphasia (principal); R47.01 Aphasia
CPT/HCPCS: 74230; 92611

== ENCOUNTER 2024-08-12 14:33 | Emergency (ER) | payer MEDICARE, SELFPAY ==
[2024-08-12] VITALS (9 sets, daily range): BP systolic 143–180; BP diastolic 74–119; PULSE 66–78; RESP 18–20; TEMP 36.7–36.8; O2SAT 95–99; BMI 26.6
--- NOTE | 2024-08-12 14:49 | XR_ITS ---
FINAL REPORT TECHNIQUE: Chest PA & Lateral CLINICAL HISTORY: include neck - recent aspiration and shortness of breath COMPARISON: 07/09/2022 FINDINGS: 2 views of the chest were performed. The heart size is mildly enlarged. The lungs are underinflated. The mediastinum is within normal limits. There is abnormal airspace opacity in the left perihilar region with associated atelectasis. On the lateral view, the density appears to reside anterior to the hilum. There are no pleural effusions. There is no pneumothorax. The bony thorax appears intact. IMPRESSION: New anterior left perihilar opacity, may be due to pneumonia or aspiration. Reviewed, Interpreted and Dictated by Shaun Slater MD Transcribed by Lesley Dennis Authenticated and [facility]
--- OUTSIDE RECORDS SUMMARY | 2024-08-12 14:52 | XMS_ITS | Continuity of Care Document ---
Author Organization [facility] Address [address] [place] [address] Assessment No assessment recorded. Plan of Treatment Reminders Order Date Submit Date Provider Last Modified By Organization Details Last Modified Time Details Appointments POST OP FU 10 2024 02:30P M Kaz Mohan MD Not available Not available Not available Lab None recorded. Referral None recorded. Procedures esophagog astroduod enoscopy with biopsy (PROC) - PHYSICIAN ORDERS1. Ensure patient is NPO.0.9% normal saline @kvo preferabl y in right arm; IV patent to gravity.3 . verify consent. EGD with possible biopsy with possible dilation. 4. On-Call to Endoscopy .5. Draw pt/inr if patient on Coumadin Hold 2024 025 [place] (Outpatient Surgery), [address], [place], [address], 07/20/2024 15:37:32 Surgeries None recorded. Imaging None recorded. Medication Orders None recorded. Patient TargetsNo targets recorded. Patient Instructions Encounter Date Encounter Id Patient Instructions Last Modified By Organization Details Last Modified Time 06/15/2024 [id number] The indications, technique, alternatives, and potential risks and complications of planned procedure were discussed with the patient including, but not limited to bleeding, perforation, missed lesions, and anesthesia complications. The patient understands and wishes to proceed and has given informed consent. Written information provided to the patient. [email or web address] Not available 06/15/2024 11:03:50 Reason for Referral None Reported. Problems Name Problem SNOMED Code Status Onset Date Resolution Date Notes Provider Name and Address Organization Details Recorded Time Esophageal dysphagia 19475989 Active 2024 Kaz Mohan MD [facility] [employer] [facility],[address], [place], [address], [place] [facility] - [place] & [place] 5 10:48:54 Atrial fibrillation 48096954 Active 2023 Rich Jacinto MD [address] [place] [address],[address], [place], [address], [place] [facility] - [place] & [place] 4 10:34:20 Peripheral venous insufficiency 44383360 Active 2023 Rich Jacinto MD [address] [place] [address],[address], [place], [address], [place] [facility] [place] & [place] 4 11:08:38 Tobacco dependence syndrome 21125872 Active 2023 Rich Jacinto MD [address] [place] [address],[address], [place], [address], [place] [facility] - [place] & [place] 4 11:08:43 Electrocardiog jerri abnormal 227954549 Active 2023 Rich Jacinto MD [address] [place] [address],[address], [place], [address], [place] [facility] [place] & [place] 4 11:09:11 Peripheral vascular disease 073346293 Active 2023 Rich Jacinto MD [address] [place] [address],[address], [place], [address], [place] [facility] [place] & [place] 4 11:09:26 Heart murmur 42470315 Active 2023 Rich Jacinto MD [address] [place] [address],[address], [place], [address], [place] [facility] [place] & [place] 4 11:10:01 Problem Notes None recorded. Medical Equipment None Reported. Allergies No known drug allergies Medications Name Sig Start Date Stop Date Status Note LastModified by Organization Details LastModified Time furosemide 40 mg tablet 05/12 completed Not Available Not Available Not Available Lasix 80 mg tablet Take 1 tablet every day by oral route. 05/12 completed Not Available Not Available Not Available oxcarbazepi ne 150 mg tablet 05/12 completed Not Available Not Available Not Available nystatin 100,000 unit/mL oral suspension 05/12 completed Not Available Not Available Not Available prednisone 10 mg tablet 05/12 completed Not Available Not Available Not Available ipratropium 0.5 mg-albutero l 3 mg (2.5 mg base)/3 mL nebulizatio n soln 05/12 completed Not Available Not Available Not Available clindamycin HCl 300 mg capsule 05/12 completed Not Available Not Available Not Available albuterol sulfate 2.5 mg/3 mL (0.083 %) solution for nebulizatio n 06/15 completed Not Available Not Available Not Available azithromyci n 250 mg tablet 05/12 completed Not Available Not Available Not Available hydrocodone 5 mg-acetamin ophen 325 mg tablet TAKE ONE TABLET BY MOUTH THREE TIMES DAILY NEEDED 06/15 completed Not Available Not Available Not Available Nystop 100,000 unit/gram topical powder 05/12 completed Not Available Not Available Not Available lisinopril 20 mg tablet TAKE TWO TABLETS BY MOUTH DAILY 05/12 completed Not Available Not Available Not Available ondansetron HCl 4 mg tablet 05/12 completed Not Available Not Available Not Available prednisone 20 mg tablet TAKE ONE TABLET BY MOUTH TWICE DAILY 05/12 completed Not Available Not Available Not Available clonazepam 0.5 mg tablet 06/15 completed Not Available Not Available Not Available olanzapine 5 mg tablet 06/15 completed Not Available Not Available Not Available pantoprazol e 40 mg intravenous solution Inject by intraveno us route. 05/12 completed Not Available Not Available Not Available clindamycin HCl 150 mg capsule 05/12 completed Not Available Not Available Not Available bacitracin 500 unit/gram topical ointment apply to buttocks topically every shift active Not Available Not Available No t Available melatonin 3 mg tablet Take 1 tablet every day by oral route at bedtime. active Not Available Not Available No t Available amlodipine 5 mg tablet 05/12 completed Not Available Not Available Not Available sulfamethox azole 800 mg-trimetho prim 160 mg tablet Take 1 Tablet by mouth two times daily 05/12 completed Not Available Not Available Not Available tramadol 50 mg tablet 05/12 completed Not Available Not Available Not Available acetaminoph en 500 mg tablet take 1 tablet every 4 hours as needed active Not Available Not Available No t Available spironolact one 25 mg tablet TAKE ONE TABLET BY MOUTH DAILY 05/12 completed Not Available Not Available Not Available ketorolac 30 mg/mL (1 mL) injection solution 05/12 completed Not Available Not Available Not Available alprazolam 0.5 mg tablet 06/15 completed Not Available Not Available Not Available alprazolam 0.25 mg tablet take ONE (one) Tablet by MOUTH TWICE DAILY NEEDED anxiety] 06/15 completed Not Available Not Available Not Available lorazepam 0.5 mg tablet 05/12 completed Not Available Not Available Not Available Celexa 20 mg tablet Take 1 tablet every day by oral route. 05/12 completed Not Available Not Available Not Available Kenalog 10 mg/mL suspension for injection Take 2 mg by injection route. 05/12 completed Not Available Not Available Not Available hydrocortis one 1 % topical cream 05/12 completed Not Available Not Available Not Available pantoprazol e 40 mg tablet,frank yed release TAKE ONE TABLET BY MOUTH TWICE DAILY 06/15 completed Not Available Not Available Not Available erythromyci n 5 mg/gram (0.5 %) eye ointment 06/15 completed Not Available Not Available Not Available nystatin 100,000 unit/gram topical cream APPLY TO THE AFFECTED AREA(S) BY TOPICAL ROUTE every shift active Not Available Not Available No t Available dexamethaso ne 4 mg tablet 05/12 completed Not Available Not Available Not Available lisinopril 10 mg tablet Take 1 tablet twice a day by oral route. active Not Available Not Available No t Available haloperidol lactate 5 mg/mL injection solution 05/12 completed Not Available Not Available Not Available mupirocin 2 % topical ointment 05/12 completed Not Available Not Available Not Available furosemide 20 mg tablet Take 1 tablet every day by oral route. active Not Available Not Available No t Available lorazepam 1 mg tablet 05/12 completed Not Available Not Available Not Available methylpredn isolone 4 mg tablets in a dose pack 05/12 completed Not Available Not Available Not Available cefdinir 300 mg capsule 05/12 completed Not Available Not Available Not Available fluticasone propionate 50 mcg/actuati on nasal spray,suspe nsion 06/15 completed Not Available Not Available Not Available Depakote 250 mg tablet,frank yed release Take 1 tablet every day by oral route at bedtime. active Not Available Not Available No t Available doxycycline hyclate 100 mg tablet 05/12 completed Not Available Not Available Not Available ipratropium bromide 0.02 % solution for inhalation 05/12 completed Not Available Not Available Not Available azithromyci n 500 mg tablet 05/12 completed Not Available Not Available Not Available escitalopra m 10 mg tablet Take 1 tablet every day by oral route. active Not Available Not Available No t Available cyclobenzap rine 5 mg tablet TAKE ONE TABLET BY MOUTH THREE TIMES DAILY NEEDED 05/12 completed Not Available Not Available Not Available bupivacaine (PF) 0.25 % (2.5 mg/mL) injection solution Take 2 mg by injection route. 05/12 completed Not Available Not Available Not Available escitalopra m 5 mg tablet 05/12 completed Not Available Not Available Not Available ORTHOVISC 30 mg/2 mL intra-artic ular syringe Inject 2 mL every week by intra-art icular route. 05/12 completed Not Available Not Available Not Available nitrofurant oin monohydrate /macrocryst als 100 mg capsule Take 1 (one) Capsule by mouth two times daily 01/07 completed Not Available Not Available Not Available duloxetine 30 mg capsule,del ayed release 05/12 completed Not Available Not Available Not Available lactulose 10 gram/15 mL oral solution Take 30 mL every day by oral route as needed. 06/15 completed Not Available Not Available Not Available Tusnel Diabetic 10 mg-100 mg/5 mL oral liquid 05/12 completed Not Available Not Available Not Available Zofran 05/12 completed Not Available Not Available Not Available potassium chloride 05/12 completed Not Available Not Available Not Available ferrous sulfate 05/12 completed Not Available Not Available Not Available albuterol sulfate 05/12 completed Not Available Not Available Not Available lisinopril 05/12 completed Not Available Not Available Not Available aripiprazol e 2 mg tablet 05/12 completed Not Available Not Available Not Available Symbicort 160 mcg-4.5 mcg/actuati on HFA aerosol inhaler 06/15 completed Not Available Not Available Not Available FeroSul 325 mg (65 mg iron) tablet Take 1 tablet by mouth daily 05/12 completed Not Available Not Available Not Available Chest Congestion Relief 100 mg/5 mL oral liquid 05/12 completed Not Available Not Available Not Available Senexon-S 8.6 mg-50 mg tablet Take 2 tablets every day by oral route. 05/12 completed Not Available Not Available Not Available Mucus Relief ER 600 mg tablet, extended release Take 1 tablet every 12 hours by oral route. 06/15 completed Not Available Not Available Not Available Nuedexta 20 mg-10 mg capsule 05/12 completed Not Available Not Available Not Available Vitamin D2 05/12 completed Not Available Not Available Not Available Eliquis 5 mg tablet Take 1 tab twice daily active Not Available Not Available No t Available potassium chloride ER 20 mEq tablet,exte nded release Take 2 tablets by mouth daily 05/12 completed Not Available Not Available Not Available Anoro Ellipta 62.5 mcg-25 mcg/actuati on powder for inhalation Inhale 1 puff every day by inhalatio n route. active Not Available Not Available No t Available Voltaren Arthritis Pain 05/12 completed Not Available Not Available Not Available budesonide 160 mcg-glycopy r 9 mcg-formot 4.8 mcg/actuati on HFA inhaler Inhale 2 puffs twice a day by inhalatio n route. 06/15 completed Not Available Not Available Not Available zinc oxide 20 % topical paste apply to buttocsks every shift active Not Available Not Available No t Available Vitals Date Recorded Body height Body mass index (BMI) Body weight Body temperature Oxygen saturation Oxygen saturation in Arterial blood by Pulse oximetry Heart rate Respiratory rate Systolic blood pressure Diastolic blood pressure Provider Name and Address Organization Details Last Updated DateTime 5 162.56 cm 27.5 kg/m2 18989.7 8 g 97.7 [degF] 95 % 95 % 62 /min 16 /min 128 mm[Hg] 82 mm[Hg] Vandana Alonso [facility] [place] 10:43:05 Social History Question Answer Notes LastModified by Organizat [employer] Details LastModified Time Tobacco Smoking Status Former Smoker Daya michel, [facility] & [place] 05/13/2023 10:03:12 What Is Your Level Of Caffeine Consumption? Occasional [email or web address] Information not available 06/15/2024 What Type Of Diet Are You Following? REGULAR [email or web address] Information not available 06/15/2024 When Did You Quit Smoking? 6-10yearssincel [email or web address] Information not available 05/13/2023 What Is Your Current Pack Years? [email or web address] Information not available 05/13/2023 How Much Tobacco Do You Smoke? No Information not available 05/13/2023 Has Tobacco Cessation Counseling Been Provided? No Information not available 05/13/2023 How Many Years Have You Smoked Tobacco? 60 Information not available 05/13/2023 Sex: Female Functional Status Question Answer Note LastModified by Organizat [employer] Details LastModified Time Do you use any illicit or recreational drugs? No [email or web address] Information not available 06/15/2024 Do you or have you ever used any other forms of tobacco or nicotine? No Information not available 05/13/2023 What is your level of alcohol consumption? None [email or web address] Information not available 01/06/2022 What is your exercise level? None [email or web address] Information not available 06/15/2024 Mental Status None recorded. Family History Relationship Description Onset Age of this Age Resolved Age Notes LastModified by Organization Details LastModified Time Father Hypertensive disorder [email or web address] Not available 2021 12:13:25 Medical History Condition Response Arthritis Y Swelling Y Congestive Heart Failure (CHF) Y Hypertension Y Gynecological HistoryNo gynecological history recorded. Obstetrics History GPAL:G 0 P 0 0 0 0 Immunizations Vaccine Type Date Status Note Provider Nam e and Address Organization Details Recorded Time Pneumococcal conjugate PCV 13 9 completed Ange Salazar null, [place] [facility] & [place] 01/22/2022 13:00:48 COVID-19, mRNA, LNP-S, bivalent, PF, 50 mcg/0.5 mL or 25mcg/0.25 mL dose 2 completed Ange Dickersons null, [place] [facility] - [place] & [place] 01/22/2022 13:00:48 Influenza, split virus, quadrivalent, PF 9 completed Ange Dickersons null, [place] [facility] [place] & [place] 01/22/2022 13:00:48 COVID-19, mRNA, LNP-S, PF, 100 mcg/0.5mL dose or 50 mcg/0.25mL dose 1 completed Ange Dickersons null, [place] [facility] & [place] 01/22/2022 13:00:48 COVID-19, mRNA, LNP-S, PF, 100 mcg/0.5mL dose or 50 mcg/0.25mL dose 1 completed Ange Dickersons null, [place] [facility] - [place] & [place] 01/22/2022 13:00:48 COVID-19, mRNA, LNP-S, PF, 100 mcg/0.5mL dose or 50 mcg/0.25mL dose 1 completed Ange Salazar null, [place] [facility] & [place] 01/22/2022 13:00:48 Past Encounters Encounter ID Performer Location Encounter Start Date Encounter Closed Date Diagnosis/Indication Diagnosis SNOMED-CT Code Diagnosis ICD10 Code Diagnosis Note [id number] Kaz Mohan MD [facility] [address] [place] [address],[address] [address] 06/15/2024 10:29:14 06/15/2024 11:06:28 Esophageal dysphagia 37106131 R13.19 The patient has dysphagia symptomato logy suggesting recurrent esophageal stricture, at this time recommend EGD, for diagnostic potentiall y therapeuti c purposes will need a eliquis hold 3 days preprocedu re Health Concerns Section Related Observation LastModified by Organization Detai ls LastModified Time None Recorded Concern Status LastModified by Organization Details LastModified Time None Recorded Payers Encounter Date Sequence Insurance Name Policy Number Policy Bergman Covered Member ID Bergman Member ID Guarantor Name 06/15/2024 1 [employer] (MEDICARE REPLACEMENT/ ADVANTAGE - PPO) Heidi Tejeda [id number] Heidi A Nikhil Notes Date Note Type Note Provider Name and Address Organization Details Recorded Time 06/15/2024 text/html This is a 78-year-old female with a history of an esophageal stricture requiring dilation in the past who presents today for evaluation of dysphagia. patient and daughter are interview today, reported she has had dysphagia to solid foods for several years, progressive. Has had a modified barium swallow by speech pathology that demonstrated some mild oral and pharyngeal dysphagia, but also recommended the patient be seen by GI. The patient has a history of reflux on PPI therapy no heartburn currently. No weight loss, notes that when she eats food gets down to mid chest then stops. If she tries to eat further come back up. Kaz Mohan MD [address] [place] [address],[address], [place], [address], [place] - [facility] - [place] & [place] 06/15/2024 11:04:06 OBGyn Episode No OBEpisode recorded.
--- NOTE | 2024-08-12 14:53 | [facility].EDGENADL ---
Discharge Plan Disposition Patient Disposition: Home, Self-Care Condition: Good Prescriptions Prescriptions: No Action acetaminophen 325 mg tablet 650 mg PO Q4H PRN (Reason: pain) Qty: 360 0RF fluticasone propionate [Allergy Relief (fluticasone)] 50 mcg/actuation spray,suspension 1 spray intranasal DAILY Qty: 16 2RF Rx Instructions: administer into each nostril budesonide-formoterol [Symbicort] 160-4.5 mcg/actuation HFA aerosol inhaler 1 puff inhalation BID Qty: 10.2 2RF divalproex [Depakote] 250 mg tablet,delayed release (DR/EC) 250 mg PO BID Qty: 60 2RF Eliquis 5 mg tablet 5 mg PO BID Qty: 60 2RF guaifenesin 600 mg tablet extended release 12hr 600 mg PO BID Qty: 60 0RF olanzapine [Zyprexa] 5 mg tablet 5 mg PO DAILY Qty: 30 2RF furosemide 20 mg tablet 20 mg PO DAILY Qty: 30 2RF lactulose 10 gram/15 mL solution 20 g PO DAILY Qty: 237 2RF escitalopram oxalate [Lexapro] 10 mg tablet 10 mg PO DAILY ondansetron HCl 4 mg tablet 4 mg PO Q6H PRN pantoprazole 40 mg tablet,delayed release (DR/EC) 40 mg PO DAILY Referrals Follow up/Referrals: Provider,Referral, MD [Referring, Medical] - See instructions Activity Restrictions/Add. Instructions Additional Instructions/Restrictions: Your chest x-ray did show evidence of aspiration although it is not routinely recommended that this be treated with antibiotics. I recommend you discuss with your primary care doctor potentially getting a swallow evaluation by a speech-language pathologist. Please return with any new or worsening symptoms. Clinical Impressions Clinical Impression: Aspiration of food Print Language Print Language: Burkinan Discharge ED Provider: Joseph Tong General Adult HPI <Ash Becerra MD - Last Filed: 08/12/24 15:01> General Chief complaint: Recheck/Abnormal Lab/Rx Stated complaint: CHOKED AT NH Time Seen by Provider: 08/12/24 14:49 Mode of Arrival: EMS Source of Information: Patient, EMS and Medical Record Description of Symptoms (Recalled from ER Triage Doc. by RN): pt came from [facility] today after choking during lunch in the dining room, hemlich performed and successful, pt sent to be checked out, pt is alox4 and denies any complaints or pain just hard to take a deep breath History of Present Illness HPI narrative: Please note that above description of symptoms, in this electronic medical record under categorization of recalled from ER triage doctor by RN are reflective of an initial nursing assessment, however, is not reflective of my full history and physical exam that was personally taken and clarified. Consequentially, this preceding description of symptoms, which may include the patient's categorized chief complaint in the EMR, do not reflect my personal clinical impression, and the ultimate description of history of present illness and patient stated complaints should be deferred to this section of the note. Unless stated otherwise or congruent with this section of the note, additional signs, symptoms, or incongruence should be interpreted as inaccurate with my clinical impression. Related Data Home Medications ?Medication ?Instructions ?Recorded ?Confirmed pantoprazole 40 mg tablet,delayed 40 mg PO DAILY Acid reflux 08/13/22 12/15/23 release escitalopram oxalate 10 mg tablet 10 mg PO DAILY 03/20/23 12/15/23 (Lexapro) ondansetron HCl 4 mg tablet 4 mg PO Q6H PRN 03/20/23 12/15/23 Previous Rx's ?Medication ?Instructions ?Recorded acetaminophen 325 mg tablet 650 mg (2 x 325 mg) PO Q4H PRN 12/05/22 pain #360 tabs apixaban 5 mg tablet (Eliquis) 5 mg PO BID #60 tabs 12/05/22 budesonide-formoterol HFA 160 1 puff inhalation BID #10.2 grams 12/05/22 mcg-4.5 mcg/actuation aerosol inhaler (Symbicort) divalproex 250 mg tablet,delayed 250 mg PO BID #60 tabs 12/05/22 release (Depakote) fluticasone propionate 50 1 spray intranasal DAILY #16 grams 12/05/22 mcg/actuation nasal spray,suspension (Allergy Relief (fluticasone)) guaifenesin 600 mg tablet, 600 mg PO BID #60 tabs 12/05/22 extended release 12 hr olanzapine 5 mg tablet (Zyprexa) 5 mg PO DAILY #30 tabs 12/05/22 furosemide 20 mg tablet 20 mg PO DAILY #30 tabs 03/20/23 lactulose 10 gram/15 mL oral 20 g (30 mL) PO DAILY #237 mL 03/20/23 solution Allergies Allergy/AdvReac Type Severity Reaction Status Date / Time hydrocodone Allergy Verified 12/15/23 13:20 [facility] <Ash Becerra MD - Last Filed: 08/12/24 15:01> [facility] Disclaimer: The information contained in this section may have been updated after the patient was seen, as this information can be updated by other users. Medical History Chronic kidney disease Osteoporosis GERD (gastroesophageal reflux disease) COPD (chronic obstructive pulmonary disease) Carotid stenosis, bilateral Atrial fibrillation Mitral valve insufficiency Atherosclerotic cardiovascular disease Major depressive disorder History of alcohol abuse Vitamin D deficiency Iron deficiency anemia Cerebral infarction Type 2 diabetes mellitus CHF (congestive heart failure) Anxiety HTN (hypertension), benign Surgical History History of hysterectomy History of cholecystectomy Social History Smoking Status: Former smoker alcohol intake: never substance use type: denies use current occupational status: retired Travel in the last 8 weeks?: None housing: senior living Have you lived/traveled outside [place] in past 30 days?: No Contact w/someone who lives/traveled outside [place] past 30 days?: No Exposure to someone with infectious disease in past 14 days?: No Do you have a fever (greater than 100.4 F or 38 C)?: No Have you tested positive for COVID-19?: No Exposed to someone with COVID-19 in past 14 days?: No Do you have a sore throat?: No Do you have a cough?: No Do you have any weakness?: No Do you have any diarrhea?: No Are you experiencing any unusual bleeding?: No Do you have any muscle aches/pain?: No Do you have any abdominal pain?: No Are you experiencing loss of taste or smell?: No Other Medical History Have you received the Pneumonia Vaccine: No <Ash Becerra MD - Last Filed: 08/12/24 15:01> ROS Obtained: Yes All systems reviewed & no additional complaints except as documented Physical Exam <Ash Becerra MD - Last Filed: 08/12/24 15:01> General General appearance: alert Head Head exam: atraumatic and normocephalic Eye Eye exam: Present normal appearance, PERRL and EOMI Neck Neck exam: Present normal inspection, full ROM and trachea midline Respiratory Respiratory exam: Absent respiratory distress, wheezes, stridor, accessory muscle use or prolonged expiratory phase Cardiovascular Cardiovascular exam: Present other (Pulses equal symmetric in upper and lower extremities) Abdominal Exam Abdominal exam: Present soft; Absent distention, tenderness or pulsatile mass Extremities Exam Extremities exam: Absent edema Neurological Exam Neurological exam: Present alert, oriented X3 and CN II-XII intact; Absent motor sensory deficit Skin Skin exam: Present warm and dry; Absent diaphoresis or erythema Medical Decision Making <Ash Becerra MD - Last Filed: 08/12/24 15:01> Medical Records Medical records reviewed: Yes I reviewed the patient's medical records. Screening: Per USPSTF and CDC recommendations, given the prevalence of disease in our region, it is our hospital?s policy to screen for HIV and viral Hepatitis for all patients aged 18 and over and those with ongoing risk factors. Michel Inquiry Pt receiving controlled substance: No Michel was queried for this patient: No Vital Signs: 08/12/24 14:37 08/12/24 15:10 08/12/24 15:30 Temperature 98.2 F Temperature Source Oral Pulse Rate 66 75 Pulse Rate [Left Radial] 72 Respiratory Rate 18 Blood Pressure 154/92 H 173/85 H Blood Pressure [Right Arm] 180/109 H Blood Pressure Mean [Right Arm] 132 02 Sat by Pulse Oximetry 97 96 96 Oxygen Delivery Method Room Air Room Air 08/12/24 16:47 08/12/24 17:00 08/12/24 17:31 Temperature Temperature Source Pulse Rate 69 74 73 Pulse Rate [Left Radial] Respiratory Rate Blood Pressure 143/80 H 165/95 H 146/119 H Blood Pressure [Right Arm] Blood Pressure Mean [Right Arm] 02 Sat by Pulse Oximetry 96 97 96 Oxygen Delivery Method Room Air Room Air Room Air 08/12/24 17:41 08/12/24 18:00 08/12/24 18:30 Temperature 98.1 F Temperature Source Pulse Rate 78 72 70 Pulse Rate [Left Radial] Respiratory Rate 20 Blood Pressure 143/80 H 148/75 H 152/74 H Blood Pressure [Right Arm] Blood Pressure Mean [Right Arm] 02 Sat by Pulse Oximetry 98 99 Oxygen Delivery Method Room Air Room Air Orders (Tests/Meds): ORDERS Category Date Time Status CXR 2 view (NOT portable) [XR chest 2V] Stat Exams 08/12/24 14:49 Completed Medical Decision Narrative: 78-year-old female no relevant medical history presenting with near aspiration. She was eating at her senior living prior to this. Choked on some food, received the Heimlich maneuver. Patient did not lose consciousness, food came up, but she was brought essentially for medical evaluation. On arrival to the emergency department, patient has no acute complaints. She states that her throat is clear and she does not feel like anything is still stuck. No shortness of breath, no vomiting, no pain, or any other concerns. History obtained with patient and EMS. Also obtained with senior living staff. On my evaluation, patient alert, oriented to person and place. Also oriented to situation. Lungs are clear, patient nontachypneic. No stridor in the neck. She speaking and does not appear to have muffled voice or any acute abnormalities externally. Full range of motion of neck. Differential includes foreign body, aspiration, resolved obstruction, among others. X-rays ordered. Prior to these being obtained, care handed off to oncoming physician. Certified Tower Climber disclaimer Much of this encounter note is an electronic marine machinist spoken language to printed text. Electronic marine machinist of the spoken language may permit errors. Although I have reviewed the note, some errors may still exist. <Joseph Tong MD - Last Filed: 08/12/24 23:02> Vital Signs: 08/12/24 14:37 08/12/24 15:10 08/12/24 15:30 Temperature 98.2 F Temperature Source Oral Pulse Rate 66 75 Pulse Rate [Left Radial] 72 Respiratory Rate 18 Blood Pressure 154/92 H 173/85 H Blood Pressure [Right Arm] 180/109 H Blood Pressure Mean [Right Arm] 132 02 Sat by Pulse Oximetry 97 96 96 Oxygen Delivery Method Room Air Room Air 08/12/24 16:47 08/12/24 17:00 08/12/24 17:31 Temperature Temperature Source Pulse Rate 69 74 73 Pulse Rate [Left Radial] Respiratory Rate Blood Pressure 143/80 H 165/95 H 146/119 H Blood Pressure [Right Arm] Blood Pressure Mean [Right Arm] 02 Sat by Pulse Oximetry 96 97 96 Oxygen Delivery Method Room Air Room Air Room Air 08/12/24 17:41 08/12/24 18:00 08/12/24 18:30 Temperature 98.1 F Temperature Source Pulse Rate 78 72 70 Pulse Rate [Left Radial] Respiratory Rate 20 Blood Pressure 143/80 H 148/75 H 152/74 H Blood Pressure [Right Arm] Blood Pressure Mean [Right Arm] 02 Sat by Pulse Oximetry 98 99 Oxygen Delivery Method Room Air Room Air Orders (Tests/Meds): ORDERS Category Date Time Status CXR 2 view (NOT portable) [XR chest 2V] Stat Exams 08/12/24 14:49 Completed Medical Decision Narrative: 78-year-old female no relevant medical history presenting with near aspiration. She was eating at her senior living prior to this. Choked on some food, received the Heimlich maneuver. Patient did not lose consciousness, food came up, but she was brought essentially for medical evaluation. On arrival to the emergency department, patient has no acute complaints. She states that her throat is clear and she does not feel like anything is still stuck. No shortness of breath, no vomiting, no pain, or any other concerns. History obtained with patient and EMS. Also obtained with senior living staff. On my evaluation, patient alert, oriented to person and place. Also oriented to situation. Lungs are clear, patient nontachypneic. No stridor in the neck. She speaking and does not appear to have muffled voice or any acute abnormalities externally. Full range of motion of neck. Differential includes foreign body, aspiration, resolved obstruction, among others. X-rays ordered. Prior to these being obtained, care handed off to oncoming physician. Certified Tower Climber disclaimer Much of this encounter note is an electronic marine machinist spoken language to printed text. Electronic marine machinist of the spoken language may permit errors. Although I have reviewed the note, some errors may still exist. Joseph Tong MD KAMRAN: I assumed care of this patient from the previous emergency medicine physician. X-ray imaging consistent with aspiration pneumonitis. Patient is asymptomatic upon repeat evaluation. She is stable for discharge at this time. Return precautions given. Critical Care <Ash Becerra MD - Last Filed: 08/12/24 15:01> Critical Care Time Critical Care Time: No
--- OUTSIDE RECORDS SUMMARY | 2024-08-12 14:54 | XMS_ITS | Data Portability ---
Author Organization [place] - [facility] - [place] & [facility] Address [address] [place] [address] Assessment Encounter Date Assessment Date Assessment LastModified by Organization Details LastModified Time 05/13/2023 05/13/2023 Shortness of breath with exertion. Patient uses a wheelchair. Also some discoloration in the feet and some mild edema which which has up concerned why she went to the emergency room. She had a CT runoff done which went down to the knee. No significant peripheral vascular disease was noted to the distal superficial femoral artery but nothing was visualize below that because of contrast issues. The report specifically says no evidence for significant large vessel stenosis in the runoff of either lower extremity to the level of the distal superficial femoral arteries. There is degradation. This was from 05/07/2023. Her creatinine was normal. CBC normal. She has a heavy tobacco user. Likely does have some peripheral vascular disease below the knee. She has no ulcers. Has some mild discoloration. No significant edema. I think at this time will wait to get the follow-up results of an ankle-brachial indices that was done out at [facility] after her ER visit. She is already on Eliquis for AFib and she is rate controlled. The EKG today shows atrial fibrillation with occasional PVC. Heart rate 90. Nonspecific changes. Blood pressure looks good. I discussed with the family about peripheral vascular disease. They are aware that the flow to the knee is normal and that were waiting on the ankle-brachial indices to see what this looks like below the knee. In any case, it is academic, as I would not do anything below the knee at her age especially if she does not have ulcers and she has not complaining of leg pain. The blood pressure looks great. She is on Eliquis for the atrial fibrillation. Had a long discussion with the family as well about atrial fibrillation and the fact that she is covered because she is on Eliquis. The rate is controlled. I will get an echocardiogram. She has a 2/6 systolic ejection murmur. Will do this as a baseline for the AFib as well. Meds and chart reviewed in full today. Follow-up in Cardiology Clinic in 3-4 weeks Get a copy of ankle-brachial indices done at [facility] Echocardiogram Continue Eliquis 5 mg twice daily Monitor blood pressure and heart rate Encourage tobacco avoidance and cessation Risk factor modification Recommend LDL less than 70 Encourage ambulation and rehabilitation Follow-up in Cardiology Clinic in 3-[address] scan 05/07/2023 was ACT runoff with no evidence for large vessel stenosis of the runoff in either lower extremity to the distal superficial femoral artery EKG shows atrial fibrillation with a controlled rate at 90 with occasional PVC and nonspecific changes [email or web address] Not available 05/13/2023 11:08:33 Plan of Treatment Reminders Order Date Submit Date Provider Last Modified By Organization Details Last Modified Time Details Appointments POST OP FU 10 2024 02:30P Cindi Mohan MD Not available Not available Not [...] if patient on Coumadin Hold 2024 025 [email or web address] Jimenes (Outpatient Surgery), [place] [address] [place], [address], 07/20/2024 15:37:32 Surgeries None recorded. Imaging ankle brachial index, complete 2023 024 yolette Jimenes (Centralized Scheduling), [address] [place], [address], 06/17/2023 07:37:10 US, echocardi ogram, transthor acic, complete, w/ color flow 2023 024 yolette Jimenes (Centralized Scheduling), [place], [address], 05/27/2023 07:55:28 electroca rdiogram 2023 024 rika [facility], [address] [place] [address] [address], [place], [address], 05/13/2023 10:34:32 Medication Orders Kenalog 10 mg/mL suspensio n for injection 2022 023 [facility], [address] [place] [address] [place], [id number], 05/13/2023 10:30:32 bupivacai ne (PF) 0.25 % (2.5 mg/mL) injection solution 2022 023 [facility], [address] [place] [address] [place], [id number], 05/13/2023 10:34:52 ORTHOVISC 30 mg/2 mL intra-art icular syringe 2021 022 [facility], [address] [place] [address] [place], [place], [id number], 05/13/2023 10:29:11 Patient TargetsNo targets recorded. Patient Instructions Encounter Date Encounter Id Patient Instructions Last Modified By Organization Details Last Modified Time 06/15/2024 [id number] The indications, technique, alternatives, and potential risks and complications of planned procedure were discussed with the patient including, but not limited to bleeding, perforation, missed lesions, and anesthesia complications. The patient understands and wishes to proceed and has given informed consent. Written information provided to the patient. [email or web address] Not available 06/15/2024 11:03:50 Reason for Referral None Reported. Results Created Date Observation Date Name Description Value Unit Range Abnormal Flag Note LastModifiedBy Organization Detail LastModifiedTime 05/13/19 24 elect rocar diogr am No observ ation record ed. KASSY [address], [place], [address], 05/13/2023 10:03:10 05/13/19 24 05/13/2023 elect rocar diogr am No observ ation record ed. [email or web address] Not Available 2023 11:16:15 05/13/19 24 05/13/2023 elect rocar diogr am No observ ation record ed. [email or web address] Not Available 2023 11:17:59 06/10/19 24 05/11/2023 ankle brach ial index , compl ete No observ ation record ed. [email or web address] [facility] [address], [place], [address], 06/10/2023 18:36:45 06/26/19 24 06/26/2023 arter ial segme ntal press ure, lower extre mity [facility] Name: DUNCAN GRAHAM A [employer] Phys: Leslie MARQUEZ, [place] [address] : 1945 Age: 77 Sex: F Acct: [id number] Loc: KATHY PHONE #: Exam Date: 2023 Status : DEP CLI FAX #: Rad# [phone] Unit# [id number] Admit Date: 2023 EXAMS: CPT CODE: [id number] SEG PRESSU RE ART LOW EXT [id number] Reason for study: Claudi cation Patien t underw ent an ankle brachi al indice s bilate ral. The brachi al pressu re on the right was 143 with a brachi al pressu re on the left of 130. Upper thigh pressu re on the right is 132 and on the left is 142. Upper calf pressu re on the right is 107 and on the left is 110. Dorali s pedis and communications editor ior tibial are 124 and 113 on the left respec tively giving an ankle brachi al indice s of 0.87 and 0.79. Dorsal is pedis and communications editor ior tibial on the right were 124 and 104 giving an ankle brachi al indice s of 0.87 and 0.73 respec tively . Overal l this signif ies modera te large vessel periph eral vascul ar diseas e likely at the level of the superf icial femora l artery bilate ral. 1. Abnorm al ankle brachi al indice s in both leg sugges ting modera te large vessel periph eral vascul ar diseas e likely at the superf icial femora l artery in both legs. Electr onical ly Signed by JOEL NELSON MD on 2023 at 1202 Report ed and signed by: JOEL NELSON MD CC: Leslie Sherman M.D.; Joel Nelson MD Dictat ed Date/T la nena: 2023 (1202) Techno logist : JOSI PEREZ Transc ribed Date/T la nena: 2023 (1202) Transc riptio nist: DR.LOH VILLALTA Electr onic Signat ure Date/T la nena: 2023 (1202) Printe d Date/T la nena: 2023 (1204) BATCH NO: N/A PAGE 1 Signed Report CC'ed Logic: Orderi ng Provid er: LESLIE MALDONADO Attend ing Provid er: LESLIE MALDONADO Referr ing Provid er: LESLIE MALDONADO Consul ting Provid er: JIM Mtz [email or web address], [place], [address], 06/29/2023 07:56:12 Result Notes None recorded. Problems Name Problem SNOMED Code Status Onset Date Resolution Date Notes Provider Name and Address Organization Details Recorded Time Esophageal dysphagia 21954880 Active 2024 Kaz Mohan MD [address] [place] [address],[address], [place], [address], [facility] & [place] 5 10:48:54 Atrial fibrillation 37546656 Active 2023 Joel Nelson MD [address] [place] [address],[address], [place], [address], [facility] - [facility] & [place] 4 10:34:20 Peripheral venous insufficiency 41664593 Active 2023 Joel Nelson MD [address] [place] [address],[address], [address], [place] - [facility] - [place] & [place] 4 11:08:38 Tobacco dependence syndrome 93092365 Active 2023 Joel Nelson MD [address] [place] [address],[address], [address], [place] - [facility] - [place] & [place] 4 11:08:43 Electrocardiog jerri abnormal 867148930 Active 2023 Joel Nelson MD [address] [place] [address],[address], [address], [facility] - [facility] & [place] 4 11:09:11 Peripheral vascular disease 245418663 Active 2023 Joel Nelson MD [address] [place] [address],[address], [address], [facility] - [facility] & [place] 4 11:09:26 Heart murmur 11172000 Active 2023 Joel Nelson MD [address] [place] [address],[address], [address], [place] - [facility] & [place] 4 11:10:01 Problem Notes None recorded. Medical [...] t Available Vitals Date Recorded Body height Oxygen saturation Oxygen saturation in Arterial blood by Pulse oximetry Heart rate Systolic blood pressure Diastolic blood pressure Provider Name and Address Organization Details Last Updated DateTime 4 160.02 cm 98 % 98 % 61 /min 110 mm[Hg] 80 mm[Hg] Joie HAMLIN - [place] - [place] & [place] 4 10:02:12 Date Recorded Body height Body mass index (BMI) Body weight Body temperature Oxygen saturation Oxygen saturation in Arterial blood by Pulse oximetry Heart rate Respiratory rate Systolic blood pressure Diastolic blood pressure Provider Name and Address Organization Details Last Updated DateTime 5 162.56 cm 27.5 kg/m2 92093.7 8 g 97.7 [degF] 95 % 95 % 62 /min 16 /min 128 mm[Hg] 82 mm[Hg] Vandana Alonso [facility] & [place] 5 10:43:05 Social History Question Answer Notes LastModified by Organizat ion Details LastModified Time Tobacco Smoking Status Former Smoker Daya michel, [facility] & [place] 05/13/2023 10:03:12 What Is Your Level Of Caffeine Consumption? Occasional [email or web address] Information not available 06/15/2024 What Type Of Diet Are You Following? REGULAR [email or web address] Information not available 06/15/2024 When Did You Quit Smoking? 6-10yearssincel [email or web address] Information not available 05/13/2023 What Is Your Current Pack Years? [email or web address] Information not available 05/13/2023 How Much Tobacco Do You Smoke? No Information not available 05/13/2023 Has Tobacco Cessation Counseling Been Provided? No Information not available 05/13/2023 How Many Years Have You Smoked Tobacco? 60 Information not available 05/13/2023 Sex: Female Functional Status Question Answer Note LastModified by Organizat [employer] Details LastModified Time Do you use any illicit or recreational drugs? No [email or web address] Information not available 06/15/2024 Do you or have you ever used any other forms of tobacco or nicotine? No Information not available 05/13/2023 What is your level of alcohol consumption? None [email or web address] Information not available 01/06/2022 What is your exercise level? None [email or web address] Information not available 06/15/2024 Mental Status None recorded. Family History Relationship Description Onset Age of this Age Resolved Age Notes LastModified by Organization Details LastModified Time Father Hypertensive disorder [email or web address] Not available 2021 12:13:25 Medical History Condition Response Congestive Heart Failure (CHF) Y Swelling Y Arthritis Y Hypertension Y Gynecological HistoryNo gynecological history recorded. Obstetrics History GPAL:G 0 P 0 0 0 0 Immunizations Vaccine Type Date Status Note Provider Nam e and Address Organization Details Recorded Time Pneumococcal conjugate PCV 13 9 completed Ange Salazar null, [place] - [facility] & [place] 01/22/2022 13:00:48 COVID-19, mRNA, LNP-S, bivalent, PF, 50 mcg/0.5 mL or 25mcg/0.25 mL dose 2 completed Ange Salazar null, [place] - [facility] & [place] 01/22/2022 13:00:48 Influenza, split virus, quadrivalent, PF 9 completed Ange Dickersons null, [place] - [facility] & [place] 01/22/2022 13:00:48 COVID-19, mRNA, LNP-S, PF, 100 mcg/0.5mL dose or 50 mcg/0.25mL dose 1 completed Ange Dickersons null, [place] - [facility] & [place] 01/22/2022 13:00:48 COVID-19, mRNA, LNP-S, PF, 100 mcg/0.5mL dose or 50 mcg/0.25mL dose 1 completed Ange Dickersons null, [place] - [facility] & [place] 01/22/2022 13:00:48 COVID-19, mRNA, LNP-S, PF, 100 mcg/0.5mL dose or 50 mcg/0.25mL dose 1 completed Ange Dickersons null, [place] - [facility] & [place] 01/22/2022 13:00:48 Past Encounters Encounter ID Performer Location Encounter Start Date Encounter Closed Date Diagnosis/Indication Diagnosis SNOMED-CT Code Diagnosis ICD10 Code Diagnosis Note [id number] ZAC JOSE [address] [address] 01/07/2022 14:26:45 01/07/2022 15:26:31 Bilateral arthritis of knees 9062655209 727872 M13.861 M13.862 [id number] MD SHANNON Mary [address] [address] 01/22/2022 12:49:02 01/22/2022 13:10:19 Bilateral osteoarthritis of knees 3443594287 04435 M17.0 [id number] Omar Reynolds MD [facility] [address] [place] [address] 01/29/2022 13:06:43 01/29/2022 13:41:37 Bilateral osteoarthritis of knees 5227926357 73628 M17.0 [id number] Omar Reynolds MD [facility] [address] [place] [address] 02/26/2022 14:37:23 02/26/2022 15:00:17 Bilateral osteoarthritis of knees 2220191713 64984 M17.0 [id number] Omar Reynolds MD [facility] [address] [place] [address] 10/22/2022 08:42:04 10/22/2022 09:55:36 Bilateral osteoarthritis of knees 2419204434 76786 M17.0 [id number] Joel Nelson MD [address] [place] [address] 05/13/2023 09:37:17 05/13/2023 10:34:59 Essential hypertension 32517955 I10 Atrial fibrillation 4943 6004 I48.91 Peripheral venous insufficiency 16961832 I87.2 Tobacco de pendence syndrome 29708662 F17.200 Electrocar diogram abnormal 718050953 R94.31 Peripheral vascular disease 650649998 I73.9 Heart murmur 68306285 R0 1.1 [id number] Joel Nelson MD [address] [place] [address] 06/10/2023 09:25:25 07/02/2023 14:31:40 Peripheral vascular disease 944377806 I73.9 [id number] Kaz Mohna MD [facility]astro[facility]ology [address] [place] [address],[address] [place] [address] 06/15/2024 10:29:14 06/15/2024 11:06:28 Esophageal dysphagia 15144033 R13.19 The patient has dysphagia symptomato logy suggesting recurrent esophageal stricture, at this time recommend EGD, for diagnostic potentiall y therapeuti c purposes will need a eliquis hold 3 days preprocedu re Health Concerns Section Related Observation LastModified by Organization Detai ls LastModified Time None Recorded Concern Status LastModified by Organization Details LastModified Time None Recorded Advance Directives Directive None Recorded Payers Insurance Date Sequence Insurance Name Policy Number Policy Bergman Covered Member ID Bergman Member ID Guarantor Name 08/08/2024 1 [place] Heidi Tejeda [id number] Heidi Tejeda 08/08/2024 1 [employer] (MEDICARE SUPPLEMENT) Heidi Tejeda [id number] Heidi Tejeda 08/08/2024 1 [employer] (MEDICARE REPLACEMENT/ ADVANTAGE - PPO) Heidi Tejeda [id number] Heidi Tejeda Notes Date Note Type Note Provider Name and Address Organization Details Recorded Time 02/26/2022 text/html Patient is here today for her 3rd bilateral OrthoVisc injection. States they are not helping and she is wasting her time. E3 JS VAL BRODERICK NP [address] [facility],[address], [place], [address], [facility] - [place] & [place] 02/26/2022 15:12:02 10/22/2022 text/html Patient here for bilateral knee pain. Had gel injections 02/26/23. Patient reports ineffective. Patient is a [facility]. Daughter who is with patient states she refuses therapy frequently at custodial. Patient is willing to try steroid injections today. [email or web address] Omar Reynolds MD [address], [place], [address], [facility] - [facility] & [place] 10/22/2022 15:50:39 05/13/2023 text/html Patient was sent to the ER a week ago secondary to discoloration of the feet and some mild edema. She denies any leg pain. She denies any chest pain pressure or tightness. Does have some shortness of breath with exertion. History of significant tobacco use. No history of coronary artery disease. She is on Eliquis and has atrial fibrillation. He has obviously a history of this being on Eliquis but the family was unaware. We think that this was diagnosed at [facility] back in the fall. In any case, she is on Eliquis. She denies any palpitations or fluttering. Joel Nelson MD [address] [place] [address],[address], [place], [address], [place] - [facility] & [place] 05/13/2023 11:10:10 06/15/2024 text/html This is a 78-year-old female [...] further come back up. Kaz Mohan MD [address] [place] [address] Drive,[address], [place], [address], [place] - [facility] & [place] 06/15/2024 11:04:06 OBGyn Episode No OBEpisode recorded.
--- NOTE | 2024-08-12 16:51 | PC.NURSE ---
pt was observed being confused and trying to get out of bed, ER staff placed bed alarm on patient and re adjusted her to make her comfy as well as left curtain open where patient could look out and be seen from nurses station
--- NOTE | 2024-08-12 17:21 | PC.NURSE ---
[facility] NOTIFIED OF TRANSFER BACK TO [facility]. CREW ALREADY TAKING PT ON ANOTHER RUN, BUT EMS HAS BEEN NOTIFIED
--- NOTE | 2024-08-12 17:23 | PC.NURSE ---
called report to brandy calixto correction rn and answered all questions, julienne [facility] notified of transport request
== END 2024-08-12 19:05 | disposition home or self-care (01) ==
PROVIDERS: Emergency Provider Emergency Medicine; PCP Internal Medicine
DX: T17.928A Food in respiratory tract, part unspecified causing other injury, initial encounter (principal); D64.9 Anemia, unspecified; F32.9 Major depressive disorder, single episode, unspecified; Z87.891 Personal history of nicotine dependence
CPT/HCPCS: 71046; 99283

== ENCOUNTER 2024-11-16 18:12 | Observation (INO) | payer MEDICARE, SELFPAY ==
[2024-11-16] VITALS (7 sets, daily range): BP systolic 153–186; BP diastolic 87–143; PULSE 58–85; RESP 16–20; TEMP 36.6–36.7; O2SAT 95–98; BMI 26.6; BMI 25.8
--- NOTE | 2024-11-16 18:37 | HMH.EDGENADL ---
Discharge Plan Disposition Patient Disposition: Admitted Condition: Good Clinical Impressions Clinical Impression: Dysphagia Discharge ED Provider: Virginia He General Adult HPI General Chief complaint: Cough Stated complaint: choked; heimlich successful Time Seen by Provider: 11/16/24 18:37 History of Present Illness HPI narrative: Patient is a 79-year-old female who came from the nursing facility after she choked on some food. Patient was given the Heimlich maneuver and was sent to our emergency department per protocol with concerns for aspiration. On arrival, patient states that she has had no difficulty swallowing has had no difficulties breathing. Patient does have a little cough that started after this event. Patient has no other symptoms no chest pain shortness of breath abdominal pain nausea vomiting or diarrhea. Per chart review, patient had 1 other similar episode back in July. Related Data Home Medications ?Medication ?Instructions ?Recorded ?Confirmed bacitracin 500 unit/gram topical 1 applic topical Q12H 11/16/24 11/17/24 ointment divalproex 250 mg tablet,delayed 250 mg PO HS 11/16/24 11/16/24 release (Depakote) lisinopril 10 mg tablet 10 mg PO BID 11/16/24 11/16/24 melatonin 3 mg tablet 3 mg PO HS 11/16/24 11/16/24 nystatin 100,000 unit/gram topical 1 applic topical Q12H 11/16/24 11/16/24 cream umeclidinium 62.5 mcg-vilanterol 1 inh inhalation DAILY 11/16/24 11/16/24 25 mcg/actuation powdr for inhalation acetaminophen 500 mg tablet 500 mg PO Q4HP PRN PAIN/FEVER 11/17/24 11/17/24 calcium carbonate 500 mg PO Q6HP PRN Heartburn 11/17/24 11/17/24 escitalopram oxalate 20 mg tablet 20 mg PO DAILY 11/17/24 11/17/24 mineral oil-hydrophil petrolat 1 applic topical BID 11/17/24 11/17/24 topical ointment pantoprazole 40 mg tablet,delayed 40 mg PO DAILY 11/17/24 11/17/24 release zinc oxide 20 % topical paste 1 ea topical BID 11/17/24 11/17/24 Previous Rx's ?Medication ?Instructions ?Recorded apixaban 5 mg tablet (Eliquis) 5 mg PO BID #60 tabs 12/05/22 furosemide 20 mg tablet 20 mg PO DAILY #30 tabs 03/20/23 levofloxacin 750 mg tablet 750 mg PO 1100 3 days #3 tabs 11/18/24 Allergies Allergy/AdvReac Type Severity Reaction Status Date / Time hydrocodone Allergy Verified 12/15/23 13:20 [facility] Disclaimer: The information contained in this section may have been updated after the patient was seen, as this information can be updated by other users. Medical History (Updated 11/17/24 @ 03:52 by Kaycee Lopez MD) Osteoarthritis Arthropathy COPD exacerbation Occlusion and stenosis of bilateral carotid arteries Atherosclerotic heart disease Vascular dementia Diabetes mellitus Chronic kidney disease Osteoporosis GERD (gastroesophageal reflux disease) COPD (chronic obstructive pulmonary disease) Carotid stenosis, bilateral Atrial fibrillation Mitral valve insufficiency Atherosclerotic cardiovascular disease Major depressive disorder History of alcohol abuse Vitamin D deficiency Iron deficiency anemia Cerebral infarction Type 2 diabetes mellitus CHF (congestive heart failure) Anxiety HTN (hypertension), benign Surgical History History of hysterectomy History of cholecystectomy Social History (Updated 11/16/24 @ 22:34 by Aidan Mosqueda RN) Smoking Status: Former smoker alcohol intake: former substance use type: denies use current occupational status: retired Travel in the last 8 weeks?: None housing: [facility] Have you lived/traveled outside US in past 30 days?: No Contact w/someone who lives/traveled outside US past 30 days?: No Exposure to someone with infectious disease in past 14 days?: No Do you have a fever (greater than 100.4 F or 38 C)?: No Have you tested positive for COVID-19?: No Exposed to someone with COVID-19 in past 14 days?: No Do you have a sore throat?: No Do you have a cough?: No Do you have any weakness?: No Do you have any diarrhea?: No Are you experiencing any unusual bleeding?: No Do you have any muscle aches/pain?: No Do you have any abdominal pain?: No Are you experiencing loss of taste or smell?: No Other Medical History Have you received the Pneumonia Vaccine: No ROS Obtained: Yes All systems reviewed & no additional complaints except as documented and Yes Systems reviewed as appropriate & no additional complaints except as documented Physical Exam General General appearance: alert and in no apparent distress Head Head exam: atraumatic, normocephalic and normal inspection Eye Eye exam: Present normal appearance, PERRL and EOMI; Absent scleral icterus ENT ENT exam: Present normal exam and normal external ear exam Neck Neck exam: Present normal inspection and full ROM Chest Chest inspection: Present normal inspection and symmetric chest wall rise Respiratory Respiratory exam: Present normal lung sounds bilaterally; Absent respiratory distress or wheezes Cardiovascular Cardiovascular exam: Present regular rate, normal rhythm and normal heart sounds Abdominal Exam Abdominal exam: Present soft and distention; Absent tenderness, guarding or rebound Extremities Exam Extremities exam: Present normal inspection and full ROM Back Exam Back exam: Present normal inspection and full ROM Neurological Exam Neurological exam: Present alert and oriented X3 Psychiatric Psychiatric exam: Present normal affect and normal mood Skin Skin exam: Present warm and dry Medical Decision Making Medical Records Medical records reviewed: Yes I reviewed the patient's medical records. Screening: Per USPSTF and CDC recommendations, given the prevalence of disease in our region, it is our hospital?s policy to screen for HIV and viral Hepatitis for all patients aged 18 and over and those with ongoing risk factors. Michel Inquiry Pt receiving controlled substance: No Vital Signs: 11/16/24 18:39 11/16/24 19:00 11/16/24 19:30 Temperature 98.1 F Temperature Source Oral Pulse Rate 85 73 Pulse Rate [Left Radial] 73 Respiratory Rate 20 20 16 Blood Pressure 180/136 H 153/108 H Blood Pressure [Right Arm] 186/105 H Blood Pressure Mean 150 130 Blood Pressure Mean [Right Arm] 132 Blood Pressure Source Blood Pressure Position 02 Sat by Pulse Oximetry 97 96 95 Oxygen Delivery Method Room Air 11/16/24 20:01 11/16/24 20:30 11/16/24 20:57 Temperature Temperature Source Pulse Rate 67 58 L Pulse Rate [Left Radial] Respiratory Rate 17 17 Blood Pressure 182/143 H 162/142 H Blood Pressure [Right Arm] Blood Pressure Mean 152 147 Blood Pressure Mean [Right Arm] Blood Pressure Source Blood Pressure Position 02 Sat by Pulse Oximetry 95 95 Oxygen Delivery Method Room Air 11/16/24 21:10 Temperature 98.1 F Temperature Source Oral Pulse Rate 78 Pulse Rate [Left Radial] Respiratory Rate 16 Blood Pressure 180/104 H Blood Pressure [Right Arm] Blood Pressure Mean Blood Pressure Mean [Right Arm] Blood Pressure Source Automatic Cuff Blood Pressure Position Sitting 02 Sat by Pulse Oximetry Oxygen Delivery Method Room Air Lab Data Lab results reviewed: Yes I reviewed the patient's lab results. 11/18/24 07:05 11/18/24 07:05 Orders (Tests/Meds): ED MEDICATIONS Discontinued Medications Generic Name Dose Route Start Last Admin Trade Name Jaredq PRN Reason Stop Dose Admin Apixaban 5 mg 11/17/24 21:00 11/18/24 22:03 Apixaban 5mg Tablet PO 12/17/24 20:59 5 mg BID KARELY Administration Calcium Carbonate 500 mg 11/17/24 13:22 Calcium Carbonate 500mg Chewtab PO 12/17/24 13:21 Q6HP PRN Heartburn Divalproex Sodium 250 mg 11/17/24 21:00 11/18/24 22:03 Divalproex 250mg (Delayed-Release) Tablet PO 12/17/24 20:59 250 mg HS KARELY Administration Escitalopram Oxalate 20 mg 11/18/24 09:00 11/18/24 08:51 Escitalopram 20mg Tablet PO 12/18/24 08:59 20 mg DAILY KARELY Administration Heparin Sodium (Porcine) 5,000 unit 11/16/24 21:00 11/17/24 12:28 Heparin Sodium 5,000 Unit/Ml Vial SUBCUT 12/16/24 20:59 Not Given TID KARELY Hydralazine HCl 10 mg 11/16/24 21:45 Hydralazine 20mg/Ml Vial IV 12/16/24 21:44 Q4HP PRN Hypertensive Emergency Ampicillin Sodium/Sulbactam 100 mls @ 200 mls/hr 11/17/24 04:00 11/18/24 09:30 Sodium 3 gm/ Sodium Chloride IV 11/27/24 03:59 Infused Q6H KARELY Infusion Levofloxacin 750 mg 11/18/24 11:00 11/18/24 11:37 Levofloxacin 750 Mg Tablet PO 11/28/24 10:59 750 mg 1100 KARELY Administration Levofloxacin 750 mg 11/20/24 11:00 Levofloxacin 750 Mg Tablet PO 11/28/24 10:59 Q48H KARELY Lisinopril 10 mg 11/17/24 21:00 11/18/24 22:03 Lisinopril 10mg Tablet PO 12/17/24 20:59 10 mg BID KARELY Administration Melatonin 5 mg 11/17/24 21:00 11/18/24 22:03 Melatonin 5mg Tablet PO 12/17/24 20:59 5 mg HS KARELY Administration Pantoprazole Sodium 40 mg 11/18/24 09:00 11/18/24 08:48 Pantoprazole 40mg Tablet PO 12/18/24 08:59 Not Given DAILY KARELY Sodium Chloride 3 ml 11/17/24 08:18 11/17/24 15:28 Sodium Chloride 3% 15ml Neb IH 12/17/24 08:17 3 ml ONCE PRN Administration INDUCE SPUTUM [employer]LECTION Sodium Chloride 10 ml 11/17/24 08:21 Sodium Chloride 0.9% 10ml Flush Syringe IV 12/17/24 08:20 NEEDED PRN Maintain IV Site Umeclidinium/Vilanterol 1 puff 11/18/24 09:00 11/18/24 05:52 Umeclidinium/Vilanterol 62.5/25mcg Inhaler IH 12/18/24 08:59 1 puff DAILY KARELY Administration ORDERS Category Date Time Status CT head/brain wo con Stat Cat Scan 11/16/24 20:47 Completed CXR --portable [XR chest portable] Stat Exams 11/16/24 18:50 Completed Basic Metabolic Panel [facility] Lab 11/17/24 05:16 Completed Basic Metabolic Panel [facility] Lab 11/18/24 07:05 Completed CBC w/Auto Diff [Complete Blood Count Auto Diff] Stat Lab 11/16/24 21:54 Completed CMP [Comprehensive Metabolic Panel] Stat Lab 11/16/24 21:54 Completed Complete Blood Count Auto Diff [facility] Lab 11/17/24 05:16 Completed Complete Blood Count Auto Diff [facility]AB Lab 11/18/24 07:05 Completed HIV Combo Stat Lab 11/16/24 21:54 Completed Hepatitis C Ab Qual. W/ RFX Stat Lab 11/16/24 21:54 Completed Medical Decision Narrative: Patient is a 79-year-old female who came from the nursing facility after she choked on some food, the Heimlich maneuver was performed. On arrival, patient was able to state that she choked on the food, she is reporting no trouble swallowing or difficulty breathing. Patient vital signs are otherwise unremarkable. On exam patient had bilateral breath sounds with actively coughing but no other acute findings. Chest x-ray was obtained which was reviewed and interpreted by myself and showed no acute for consolidation, pneumothorax, pleural effusion or other acute cardiopulmonary process. Bedside swallow was performed in the emergency department and patient failed her bedside swallow therefore hospital medicine was consulted for admission for dysphagia screen and further workup. Critical Care Critical Care Time Critical Care Time: No
--- NOTE | 2024-11-16 18:50 | XR_ITS ---
PROCEDURE INFORMATION: Exam: XR Chest Exam date and time: 11/16/2024 7:00 PM Age: 79 years old Clinical indication: Other: Eval for aspiration TECHNIQUE: Imaging protocol: Radiologic exam of the chest. Views: 1 view. COMPARISON: CR XR CHEST 2V 08/12/2024 2:54 PM FINDINGS: Lungs: Left basilar opacity, possibly pleural fluid, with atelectasis and/or pneumonia. Pleural spaces: Probable small left pleural effusion. No pneumothorax. Heart/Mediastinum: Mild cardiomegaly. Vasculature: Atherosclerotic vascular disease. Bones/joints: Multilevel thoracic spine degenerative disc space narrowing and osteophyte formation. Organs: Cholecystectomy clips in the right upper abdomen. IMPRESSION: Left basilar opacity, possibly pleural fluid, with atelectasis and/or pneumonia. Recommend follow-up/further evaluation.
--- NOTE | 2024-11-16 20:47 | CT_ITS ---
PROCEDURE INFORMATION: Exam: CT Head Without Contrast Exam date and time: 11/16/2024 9:10 PM Age: 79 years old Clinical indication: Stroke-like symptoms; Other: Dysphagia; Additional info: Dysphagia, stroke? TECHNIQUE: Imaging protocol: Computed tomography of the head without contrast. Radiation optimization: All CT scans at this facility use at least one of these dose optimization techniques: automated exposure control; mA and/or kV adjustment per patient size (includes targeted exams where dose is matched to clinical indication); or iterative reconstruction. Other technique: STROKE PROTOCOL was implemented. COMPARISON: CT HEAD/BRAIN WO CON 05/22/2022 5:25 PM FINDINGS: Brain: Periventricular and subcortical white matter areas of hypoattenuation, likely chronic small vessel ischemic change, demyelination, or gliosis. There is parenchymal atrophy. No intracranial mass, acute hemorrhage, or acute infarction. Cerebral ventricles: Mild ventriculomegaly, likely secondary to parenchymal involution, unchanged. Paranasal sinuses: Visualized sinuses are unremarkable. No fluid levels. Mastoid air cells: Normal as visualized. Bones: Unremarkable. No acute fracture. Soft tissues: Unremarkable. IMPRESSION: No acute intracranial abnormality. ASSESSMENT: ASPECTS ([facility] Stroke Program Early CT Score) is 10.
--- NOTE | 2024-11-16 21:23 | EXP.HP ---
History of Present Illness *Admission Date: 11/17/24 *Reason for visit:: Difficulty swallowing *History of present illness: Patient is a 79-year-old female with past medical history of dementia, atrial fibrillation, who [facility] due to difficulty swallowing and aspiration. Patient at time of my evaluation appears confused and not able to provide reliable history, patient had swallow evaluation in the emergency department which the patient failed. Patient denied chest pain shortness of breath nausea vomiting diarrhea constipation. [facility] Disclaimer: The information contained in this section may have been updated after the patient was seen, as this information can be updated by other users. Medical History (Updated 11/17/24 @ 03:52 by Kaycee Lopez MD) Osteoarthritis Arthropathy COPD exacerbation Occlusion and stenosis of bilateral carotid arteries Atherosclerotic heart disease Vascular dementia Diabetes mellitus Chronic kidney disease Osteoporosis GERD (gastroesophageal reflux disease) COPD (chronic obstructive pulmonary disease) Carotid stenosis, bilateral Atrial fibrillation Mitral valve insufficiency Atherosclerotic cardiovascular disease Major depressive disorder History of alcohol abuse Vitamin D deficiency Iron deficiency anemia Cerebral infarction Type 2 diabetes mellitus CHF (congestive heart failure) Anxiety HTN (hypertension), benign Surgical History History of hysterectomy History of cholecystectomy Social History (Updated 11/16/24 @ 22:34 by Aidan Mosqueda RN) Smoking Status: Former smoker alcohol intake: former substance use type: denies use current occupational status: retired Travel in the last 8 weeks?: None housing: [facility] Have you lived/traveled outside US in past 30 days?: No Contact w/someone who lives/traveled outside US past 30 days?: No Exposure to someone with infectious disease in past 14 days?: No Do you have a fever (greater than 100.4 F or 38 C)?: No Have you tested positive for COVID-19?: No Exposed to someone with COVID-19 in past 14 days?: No Do you have a sore throat?: No Do you have a cough?: No Do you have any weakness?: No Do you have any diarrhea?: No Are you experiencing any unusual bleeding?: No Do you have any muscle aches/pain?: No Do you have any abdominal pain?: No Are you experiencing loss of taste or smell?: No Other Medical History Have you received the Pneumonia Vaccine: No Review of Systems Review of Systems Review of systems:: pertinent systems reviewed and negative unless documented below Meds Home Medications and Allergies Home Medications ?Medication ?Instructions ?Recorded ?Confirmed ?Type pantoprazole 40 mg tablet,delayed 40 mg PO DAILY Acid reflux 08/13/22 11/16/24 History release apixaban 5 mg tablet (Eliquis) 5 mg PO BID #60 tabs 12/05/22 11/16/24 Rx escitalopram oxalate 10 mg tablet 20 mg PO DAILY 03/20/23 11/16/24 History (Lexapro) furosemide 20 mg tablet 20 mg PO DAILY #30 tabs 03/20/23 11/16/24 Rx acetaminophen 325 mg tablet 500 mg PO Q4H PRN pain 11/16/24 11/16/24 History bacitracin 500 unit/gram topical 500 unit topical Q12H 11/16/24 11/16/24 History ointment divalproex 250 mg tablet,delayed 250 mg PO HS 11/16/24 11/16/24 History release (Depakote) lisinopril 10 mg tablet 10 mg PO BID 11/16/24 11/16/24 History melatonin 3 mg tablet 3 mg PO HS 11/16/24 11/16/24 History nystatin 100,000 unit/gram topical 1 applic topical Q12H 11/16/24 11/16/24 History cream umeclidinium 62.5 mcg-vilanterol 1 inh inhalation DAILY 11/16/24 11/16/24 History 25 mcg/actuation powdr for inhalation New Prescriptions to Start Prescriptions: Allergies Allergy/AdvReac Type Severity Reaction Status Date / Time hydrocodone Allergy Verified 12/15/23 13:20 Exam Data for Last 24 hours Vital signs and Labs for Last 24 Hours: Temp Pulse Resp BP Pulse Ox O2 Del Method 98.1 F 78 16 180/104 H 95 Room Air 11/16/24 21:10 11/16/24 21:10 11/16/24 21:10 11/16/24 21:10 11/16/24 20:30 11/16/24 21:10 I & O for Last 24 hours: Intake & Output 11/13/24 11/14/24 11/15/24 11/16/24 23:59 23:59 23:59 23:59 Weight 72.575 kg Constitutional Constitutional: no acute distress *Routine HEENT Exam Head: Present normocephalic Eye: Present EOMI and PERRL ENT: Present mucous membranes moist *Routine Neck Exam Neck: Present supple; Absent lymphadenopathy *Routine Respiratory Exam Respiratory: Present CTA bilaterally *Routine Cardiovascular Exam Cardiovascular: Present RRR *Routine Abdominal Exam Abdominal: Present soft and normoactive bowel sounds; Absent tenderness *Routine Rectal Exam Rectal:: deferred *Routine Genitalia Exam Genitalia:: deferred *Routine Extremities Exam Extremities: Absent cyanosis, clubbing or edema *Routine Skin Exam Skin: Present warm; Absent rash *Routine Neurological Exam Neurological: Present alert Comments: confused, AxO x 2 Assessment and Plan *Assessment and plan (1) Dysphagia: Status: Acute Category: Medical Code(s): R13.10 - Dysphagia, unspecified (2) Aspiration of food: Status: Acute Category: Medical Code(s): T17.928A - Food in respiratory tract, part unspecified causing other injury, initial encounter; [id number].F3XA - Food entering into or through a natural orifice, initial encounter (3) Aspiration pneumonia: Status: Acute Category: Medical Code(s): J69.0 - Pneumonitis due to inhalation of food and vomit (4) Urinary tract infection: Status: Acute Category: Medical Code(s): N39.0 - Urinary tract infection, site not specified Plan Patient is a 79-year-old female with past medical history of dementia, atrial fibrillation, who [facility] due to difficulty swallowing and aspiration. Patient at time of my evaluation appears confused and not able to provide reliable history, patient had swallow evaluation in the emergency department which the patient failed. Patient denied chest pain shortness of breath nausea vomiting diarrhea constipation. Assessment and plan Dysphagia, suspect due to advanced stage dementia, rule out CVA Left basilar opacity concerning for aspiration pneumonia CT head performed-negative for acute intracranial process MRI brain Consult speech therapist, consulted PT/OT Start IV Levaquin UA suggestive of UTI Continue IV Levaquin Follow-up on urine culture Thrombocytosis Patient has chronic history of elevated platelets, monitor CBC History of atrial fibrillation Holding oral Eliquis for now given n.p.o. status due to aspiration risk DVT prophylaxis-subcutaneous heparin
[2024-11-16 22:21] LABS: Alanine Aminotransferase 13 U/L (12-78); Albumin Level 4.2 g/dl (3.5-5.0); Albumin/Globulin Ratio 1.2 (1.1-1.8); Alkaline Phosphatase 73 U/L (38-126); Anion Gap 11.6 mEq/L (5-15); Aspartate Amino Transferase 27 U/L (14-36); Bilirubin,Total 0.5 mg/dl (0.2-1.3); Blood Urea Nitrogen 25 mg/dl (7-17); Calcium 9.0 mg/dl (8.4-10.2); Carbon Dioxide 27 mmol/L (22.0-30.0); Chloride 101 mmol/L (98-107); Creatinine Clearance Estimated 46 mL/min (50-200); Creatinine,Serum 1.10 mg/dl (0.52-1.04); Estimated Glomerular Filt Rate 48 ml/min (>60); GFR (African American) 58 ML/MIN (>60); Globulin 3.4 g/dL (1.3-3.2); Glucose 89 mg/dl (74-100); Hematocrit 43.4 % (37.0-47.0); Hemoglobin 14.6 g/dL (12.2-16.2); Immature Granulocytes % 0.3 %; Mean Corpuscular HGB Conc 33.6 g/dL (31.8-35.4); Mean Corpuscular Hemoglobin 32.6 pg (27.0-31.2); Mean Corpuscular Volume 96.9 fl (81-99); Nucleated Red Blood Cells % 0 %; Potassium 4.6 mmoL/L (3.5-5.1); Red Blood Count 4.48 M/mm3 (4.20-5.40); Red Cell Distribution Width-SD 44.4 fL; Sodium 135 mmol/L (136-145); Total Protein,Serum 7.6 g/dl (6.3-8.2); White Blood Count 7.6 K/mm3 (4.8-10.8)
[2024-11-16 22:25] LABS: Platelet Count 1007 K/mm3 (142-424)
--- NOTE | 2024-11-16 22:26 | PC.NURSE ---
notified flavio of plt count 1007
--- NOTE | 2024-11-16 22:50 | PC.NURSE ---
med rec updated per patient [facility]TC records
[2024-11-16] MEDS: HEPARIN SODIUM 5,000 UNIT/ML VIAL 5000 UNIT SUBCUT (23:02)
[2024-11-16 23:09] LABS: Hepatitis C Ab Qual. W/ RFX NEGATIVE (Negative)
--- NOTE | 2024-11-16 23:35 | PC.NURSE ---
when arriving to the m/s floor - patient was on room air, alert to name and birthday - unaware of situation, place, time, answers questions delayed if she is unsure. 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 pt has a hx of dementia and cerebral infarction. presents with difficulty chewing/swallowing - failed bedside swallow per ER report, pt now NPO - pt is on a soft mech diet at LTC facility. Lab came to bedside to draw first set of labs for baseline. John called to bedside to assess patient - instructed to give heparin. correction documents are in pt chart for H&P/meds.
[2024-11-17] VITALS (7 sets, daily range): BP systolic 131–166; BP diastolic 73–98; PULSE 65–80; RESP 16–18; TEMP 36.5–37; O2SAT 96–98; BMI 25.7
[2024-11-17 00:09] LABS: Microscopic, Urine URINE MICROSCOPIC (MICROSCOPIC)
[2024-11-17 00:20] LABS: Bilirubin,Urine Negative (Negative); Color,Urine YELLOW (Yellow); Glucose,Urine (UA) Negative (Negative); Ketones,Urine Negative (Negative); Leukocyte Esterase,Urine 3+ (Negative); PH,Urine 7.5 (5.0-8.5); Protein,Urine TRACE (Negative); Specific Gravity, Urine 1.015 (1.005-1.030); Urobilinogen,Urine 0.2 EU/dl (0.2)
--- NOTE | 2024-11-17 00:25 | PC.NURSE ---
spoke with guardian/daughter holly verify code status - patient will remain a full code at this time
[2024-11-17 00:37] LABS: WBC,Urine TNTC #/hpf (0-3)
[2024-11-17 00:38] LABS: Bacteria,Urine 2+ /lpf
[2024-11-17] MEDS: AMPICILLIN SODIUM/SULBACTAM 3 GM in 0.9 % SODIUM CHLORIDE 100 ML IV ×4 (04:32→22:39)
[2024-11-17 06:15] LABS: Hematocrit 41.2 % (37.0-47.0); Hemoglobin 14.0 g/dL (12.2-16.2); Immature Granulocytes % 0.3 %; Mean Corpuscular HGB Conc 34.0 g/dL (31.8-35.4); Mean Corpuscular Hemoglobin 32.6 pg (27.0-31.2); Mean Corpuscular Volume 95.8 fl (81-99); Nucleated Red Blood Cells % 0 %; Platelet Count 913 K/mm3 (142-424); Red Blood Count 4.30 M/mm3 (4.20-5.40); Red Cell Distribution Width-SD 43.4 fL; White Blood Count 6.5 K/mm3 (4.8-10.8)
[2024-11-17 06:29] LABS: Anion Gap 12.1 mEq/L (5-15); Blood Urea Nitrogen 20 mg/dl (7-17); Calcium 8.6 mg/dl (8.4-10.2); Carbon Dioxide 23 mmol/L (22.0-30.0); Chloride 103 mmol/L (98-107); Creatinine Clearance Estimated 50 mL/min (50-200); Creatinine,Serum 1.00 mg/dl (0.52-1.04); Estimated Glomerular Filt Rate 53 ml/min (>60); GFR (African American) 65 ML/MIN (>60); Glucose 77 mg/dl (74-100); Potassium 4.1 mmoL/L (3.5-5.1); Sodium 134 mmol/L (136-145)
--- NOTE | 2024-11-17 07:48 | SW/DCPLANNER ---
Addendum entered by Becky Olivares 11/18/24 11:07: Patient has been approved SNF level of care. Addendum entered by Becky Olivares 11/18/24 09:13: I have updated Lucinda that patient will return today. Per Lucinda patient will be SNF level of care. Original Note: Patient currently resides at [facility] level of care. Updated patient information has been faxed to Lucinda w/ [facility] [place]NOTE 2]. Per Lucinda she will start auth for patient to return once medically stable for discharge. Lucinda also stated that patient can return pending auth if not approved prior to being ready for discharge. Discharge date is unknown at this time. CM will continue to follow up.
--- NOTE | 2024-11-17 07:51 | P.PN_ITS ---
Subjective *Date: 11/17/24 *Time: 16:01 Interval history: Pleasant on exam this morning. No acute distress. Knows who she is but does not know where she is or why. Pleasantly demented. Awaiting speech eval. Afebrile. No nausea or vomiting. Medical Exam Vital signs and Labs for Last 24 Hours: Vital Signs Temp Pulse Pulse Resp BP BP Pulse Ox 11/17/24 06:24 11/17/24 04:35 11/17/24 04:00 98 F 72 16 148/94 H 96 11/17/24 03:00 11/17/24 01:00 11/17/24 00:00 97.9 F 74 18 139/91 H 97 11/16/24 23:00 11/16/24 22:00 97.8 F 68 16 165/87 H 98 11/16/24 21:10 98.1 F 78 16 180/104 H 11/16/24 20:57 11/16/24 20:30 58 L 17 162/142 H 95 11/16/24 20:01 67 17 182/143 H 95 11/16/24 19:30 73 16 153/108 H 95 11/16/24 19:00 85 20 180/136 H 96 11/16/24 18:39 98.1 F 73 20 186/105 H 97 O2 Del Method 11/17/24 06:24 Room Air 11/17/24 04:35 Room Air 11/17/24 04:00 Room Air 11/17/24 03:00 Room Air 11/17/24 01:00 Room Air 11/17/24 00:00 Room Air 11/16/24 23:00 Room Air 11/16/24 22:00 Room Air 11/16/24 21:10 Room Air 11/16/24 20:57 Room Air 11/16/24 20:30 11/16/24 20:01 11/16/24 19:30 11/16/24 19:00 11/16/24 18:39 Room Air Intake and Output 11/16/24 11/16/24 11/17/24 15:59 23:59 07:59 Intake Total 100 / 100 Output Total 100 / 100 Balance 0 / 0 Intake: Intake, Total IV Amount 100 / 100 Ampicillin Sodium/Sulbactam 3 100 / 100 gm In 0.9 % Sodium Chloride 100 ml @ 200 mls/hr IV Q6H [facility] Rx# :[id number] Output: Output, Urine Amount 100 / 100 Other: Number of Unmeasured Voids 1 Weight 70.261 kg 70.035 kg Patient Weight 11/17/24 23:59 Weight 70.035 kg Laboratory Results - last 24 hr 11/16/24 21:54: WBC 7.6, RBC 4.48, Hgb 14.6, Hct 43.4, MCV 96.9, MCH 32.6 H, MCHC 33.6, RDW 12.5, Plt Count 1007 H*, MPV 9.3, Neut % (Auto) 56.3, Lymph % (Auto) 24.2, Converse % (Auto) 14.5 H, Eos % (Auto) 3.0, Baso % (Auto) 1.7, Neut # (Auto) 4.3, Lymph # (Auto) 1.8, Converse # (Auto) 1.1 H, Eos # (Auto) 0.2, Baso # (Auto) 0.1, Sodium 135 L, Potassium 4.6, Chloride 101, Carbon Dioxide 27, Anion Gap 11.6, BUN 25 H, Creatinine 1.10 H, Estimated Creat Clear 46, Estimated GFR 48 L, Est GFR ( Amer) 58 L, Glucose 89, Calcium 9.0, Total Bilirubin 0.5, AST 27, ALT 13, Alkaline Phosphatase 73, Total Protein 7.6, Albumin 4.2, Globulin 3.4 H, Albumin/Globulin Ratio 1.2, HCV Ab KENDELL w/Rflx PCR Qn Negative, HIV Ag/Ab Combo Qual Negative 11/17/24 00:05: Urine Color Yellow, Urine Appearance Slightly cloudy, Urine pH 7.5, Ur Specific Percival 1.015, Urine Protein Trace, Urine Glucose (UA) Negative, Urine Ketones Negative, Urine Blood Negative, Urine Nitrate Positive A , Urine Bilirubin Negative, Urine Urobilinogen 0.2, Ur Leukocyte Esterase 3+ A, Urine WBC Tntc, Ur Squamous Epith Cells 3-5, Urine Bacteria 2+ 11/17/24 05:16: WBC 6.5, RBC 4.30, Hgb 14.0, Hct 41.2, MCV 95.8, MCH 32.6 H, MCHC 34.0, RDW 12.4, Plt Count 913 H*, MPV 9.4, Neut % (Auto) 49.9, Lymph % (Auto) 28.6, Converse % (Auto) 14.4 H, Eos % (Auto) 4.8, Baso % (Auto) 2.0, Neut # (Auto) 3.2, Lymph # (Auto) 1.9, Converse # (Auto) 0.9, Eos # (Auto) 0.3, Baso # (Auto) 0.1, Sodium 134 L, Potassium 4.1, Chloride 103, Carbon Dioxide 23, Anion Gap 12.1, BUN 20 H, Creatinine 1.00, Estimated Creat Clear 50, Estimated GFR 53 L, Est GFR ( Amer) 65, Glucose 77, Calcium 8.6 I & O for Labs for Last 24 Hours: Intake & Output 11/14/24 11/15/24 11/16/24 11/17/24 23:59 23:59 23:59 23:59 Intake Total 100 / 100 Output Total 100 / 100 Balance 0 / 0 Weight 70.261 kg 70.035 kg Constitutional: Present no acute distress, average body habitus, chronically ill appearing and cooperative Head: Present atraumatic and normocephalic Neck: Present normal inspection Respiratory: Present normal respiratory effort; Absent rhonchi, wheezes or crackles Cardiac: Present Reg Rate and Rhythm GI: Present soft and normal bowel sounds; Absent distention or tenderness Extremities: Present normal inspection and full ROM Skin: Present intact; Absent erythema Neuro: Present Grossly Intact, alert, awake and moves all extremities Assessment and Plan *Assessment and plan (1) Dysphagia: Status: Acute Category: Medical Code(s): R13.10 - Dysphagia, unspecified (2) Aspiration of food: Status: Acute Category: Medical Code(s): T17.928A - Food in respiratory tract, part unspecified causing other injury, initial encounter; W44.F3XA - Food entering into or through a natural orifice, initial encounter (3) Aspiration pneumonia: Status: Acute Category: Medical Code(s): J69.0 - Pneumonitis due to inhalation of food and vomit (4) Urinary tract infection: Status: Acute Category: Medical Code(s): N39.0 - Urinary tract infection, site not specified Plan Patient is a 79-year-old female with past medical history of dementia, atrial fibrillation, who [facility] the [facility] from [facility] due to difficulty swallowing and aspiration. Patient at time of my evaluation appears confused and not able to provide reliable history, patient had bedside swallow evaluation in the ED but unfortunately failed. Was admitted for UTI, suspected aspiration pneumonia, and speech evaluation. Review of chart shows that she was evaluated back in April with modified diet prescribed at that time. Modified barium showed residuals on the vallecula and dysfunction with swallowing. Has been working with speech at her [facility]. Problems addressed as follows: Dysphagia Dementia Suspected aspiration pneumonia -CT chest shows left basilar opacity concerning for possible aspiration pneumonia. White count this morning however 6.5, on room air. No fever. Kidney function normal BUN 20, creatinine 1.0. -Continuing Unasyn every 6 hours. - Sputum culture pending - Given history of dysphagia, concerned that it is worsening. No other focal neurologic deficits. Will hold on MRI given CT with no acute findings - Speech therapy to evaluate today. Further recommendations pending their evaluation UTI -Urine grossly abnormal, positive for nitrate, 3+ leuk esterase, white blood cells too numerous to count and 2+ bacteria. Continue Unasyn as above. Culture and speciation pending Thrombocytosis Patient has chronic history of elevated platelets, platelets 913 on morning labs. No active signs of bleeding. Low concern for clot at this time. Resume home Eliquis twice daily - Repeat CBC, CMP, magnesium ordered for the morning History of atrial fibrillation History of hypertension - Resume lisinopril 10 mg twice daily Hold on Lasix Continue Eliquis 5 mg twice daily Mood disorder: Continue Lexapro 20 mg daily, Depakote 250 mg nightly, melatonin 5 mg nightly Full code Eliquis N.p.o. pending speech eval
--- NOTE | 2024-11-17 08:50 | DIET.NUTRFU ---
Addendum entered by Alyssa Simon RD, LD 11/17/24 10:23: at [facility] she follows MSOFT diet with thin liquids, gravy onmashed potatoes. All vegetables pureed and no bread, no straws. She also recives house supplement TID at [facility] secondary to weight loss. Was following with [facility] at [facility]. Will follow-up with hospital [facility] on recommendations Original Note: RD consulted secondary to swallowing issues. Patient is form [facility] and [facility] eval ordered. Will followup with their recommendation
--- NOTE | 2024-11-17 09:34 | P.CONPHA_ITS ---
Pharmacy Intervention Comments: COMPARED MED LIST WITH [facility]. CORRECTIONS MADE TO MED LIST.
--- NOTE | 2024-11-17 09:34 | HMH.PHAINT1 ---
Pharmacy Intervention Comments: COMPARED MED LIST WITH [facility]. CORRECTIONS MADE TO MED LIST.
--- NOTE | 2024-11-17 09:58 | HMH.PTEV ---
Physical Therapy Evaluation Rehab PT IP Evaluation Start: 11/17/24 04:23 Freq: ONCE Status: Active Protocol: Document 11/17/24 09:54 LATANYA (Rec: 11/17/24 09:58 LATANYA [id number]) Subjective/History History History Per H&P: Patient is a 79-year-old female with past medical history of dementia, atrial fibrillation, who presents to the hospital from residential facility due to difficulty swallowing and aspiration. Patient at time of my evaluation appears confused and not able to provide reliable history, patient had swallow evaluation in the emergency department which the patient failed. Patient denied chest pain shortness of breath nausea vomiting diarrhea constipation. Subjective Subjective Pt is a questionable historian. Confirm hx with CM. Pt unable to state name. Pt reports she lives in a residential for >1 year and is IND with ambulation using a RW . New diagnosis of No cancer in past 12 months? [facility] How much help from another person do you currently need... Turning from your A lot back to your side while in a flat bed without using bedrails? Moving from lying on A lot back to sitting on the side of a flat bed without using bedrails? Moving to and from a A lot bed to a chair ( including a wheelchair)? Standing up from a A lot chair using your arms? (e.g., wheelchair, bedside chair) Walking in hospital A lot room? Climbing 3-5 steps A lot with a railing? Mobility Score 12 Mobility Level [facility] Mobility 4 Move to chair/commode Mobility Calculator Rehab PT IP Eval Objective Appearance Patient Behavior Appropriate,Cooperative Difficulty following moderate instructions Speech Pattern Delayed Ambulation Patient Able to No Ambulate Balance Ability to Arise Able, uses arms to help Sitting Balance Steady, safe Standing Balance Unsteady Transfers Bed Transfer Ability Moderate x 1 (50% assist) Rehab PT IP prob,goals,plan Problems Date of Evaluation: 11/17/24 PT IP Problems Bed Mobility,Transfers,Gait,Balance,Self care,Safety Rehab Potential Rehab Potential Good Plan PT Intervention Plan Bed Mobility,Transfers,Gait,Balance,Self care,Safety, Therapeutic Exercise Other Intervention 1-2 times Plan PT Plan Frequency Daily Duration LOS Discharge Plan PT Discharge Plan PT recommending pt receive skilled inpatient rehab upon d/c to residential. Pt with difficulty sequencing all mobility tasks despite Max VCs, tactile cues, and Mod A. Pt would benefit from skilled acute care PT to address deficits and improve safety. Eval Complexity Eval Charge Codes 45269 - Moderate Complexity PHYSICIAN CERTIFICATION: I certify the specified therapy services for Heidi Tejeda are required, authorized, and reviewed every 30 days.
--- NOTE | 2024-11-17 10:00 | HMH.OTEV ---
OT Evaluation Rehab OT IP Evaluation Start: 11/16/24 22:52 Freq: ONCE Status: Active Protocol: Document 11/17/24 09:55 CARLOS (Rec: 11/17/24 10:00 CARLOS [id number]) Rehab OT IP Assessment Subjective History Per History of present illness: Patient is a 79-year-old female with past medical history of dementia, atrial fibrillation, who presents to the hospital from shelter facility due to difficulty swallowing and aspiration. Patient at time of my evaluation appears confused and not able to provide reliable history, patient had swallow evaluation in the emergency department which the patient failed. Patient denied chest pain shortness of breath nausea vomiting diarrhea constipation. Subjective Yes I am Pt was supine in bed when therapy entered. Pt unable to orient to questions of name, birthday, or place. Pt reported PLOF was needing assistance for ADLs and IADLs . Pt was Mod A to go from supine to EOB. Pt Min A to lay back in supine position. Pt demo confusion and poor motor planning and coordination. Pt left supine in bed with call light and all other needs within reach and bed alarm on. CM reported to therapy pt is from [facility] in [employer]. Objective Right Upper WFL Extremity Gross ROM Left Upper Extremity WFL Gross ROM Bed Mobility bed mobility-scooting,bed mobility - supine/sit Assist Level Moderate x 1 (50% assist) Decrease in Yes Endurance Rehab OT IP prob,goals,plan Problems Date of Evaluation: 11/17/24 OT IP Problems Bed Mobility,Transfers,Balance,Self care,Safety Rehab Potential Rehab Potential Good Plan OT intervention Plan Bed Mobility,Transfers,Balance,Self care,Safety, Therapeutic Exercise OT Plan Frequency Daily Duration LOS Discharge Goals Bed Mobility Ability Assistance x1 Sit to Stand Chair Minimal x 1 (25% assist) Transfer Ability Chair Transfer Minimal x 1 (25% assist) Ability Chair Transfer Sit to/from Ambulatory Technique Feeding Ability Assist with Tray Set Up Decrease in No Endurance Discharge Plan OT Discharge Plan At this time, pt is below baseline and would benefit from skilled acute OT services and interventions while admitted at [facility] to address functional limitations in occupational performance. Once DC from [facility] and medically stable, pt could benefit from OT SNF or OT rehab services at LT where pt is living to improve optimal occupational performance and improve QOL. Eval Complexity Eval Charge Codes 66768 - Moderate Complexity PHYSICIAN CERTIFICATION: I certify the specified therapy services for Heidi Tejeda are required, authorized, and reviewed every 30 days.
[2024-11-17] MEDS: HEPARIN SODIUM 5,000 UNIT/ML VIAL 5000 UNIT SUBCUT (10:12)
--- NOTE | 2024-11-17 14:59 | PC.NURSE ---
Aox 2 with confusion note, up with assistance times one, bed alarm active, on RA, purewick in place, npo speech, pt and ot consulted.
[2024-11-17] MEDS: SODIUM CHLORIDE 3% 15ML NEB 3 ML IH (15:28)
--- NOTE | 2024-11-17 16:24 | HMH.SLDYSPHA ---
Speech & Language Evaluation Speech/Language Dysphagia Evaluation Start: 11/17/24 16:16 Freq: ONCE Status: Active Protocol: Document 11/17/24 16:17 [email or web address] (Rec: 11/17/24 16:24 [email or web address] [id number]) Dysphagia Assess/Goals/Plan Assessment Date of Evaluation: 11/17/24 Evaluation Type Initial Certification Assessment/Problems dysphagia per MD order Does Patient Qualify Yes for Service Qualify/Failure Based on clinical observations made throughout CSE and Comment dysphagia hx pt would benefit from skilled speech therapy services to f/u for diet tolerance. Recommendations PHYSICIAN CERTIFICATION: The specified therapy services are required, authorized, and reviewed every 30 days. Pt will be seen # 1 times/week for # weeks 4 Diet Recommendations MS ground, pureed veggies Liquid Type Normal/Thin Recommendations SL Swallow Alt bite w/sip thru meal,Standard Aspiration Prec., Guidelines Crush meds as allowed*,Reflux precautions Dysphagia Swallow No Straw,Small Bites and Sips,Alternate Liquids/Solids Precautions/ Strategies Plan Pt/Guardian verbally Yes ack understanding of dx/prognosis/ goals G -code Required No Education Instructions Discussed CSE and diet recommendations with pt and provided nursing who expressed understanding. [employer] attempted to discuss with MD/care management but they were unavailable. Pt/Caregiver able to Able to recall/restate recall information Reinforcement needed No Speech & Language HPI History Present Illness Description of [employer] pulled following information from chart review and Patient Problem h&P, Patient is a 79-year-old female with past medical history of dementia, atrial fibrillation, who presents to the hospital from [facility] facility due to difficulty swallowing and aspiration. Patient at time of my evaluation appears confused and not able to provide reliable history, patient had swallow evaluation in the emergency department which the patient failed. Patient denied chest pain shortness of breath nausea vomiting diarrhea constipation. CXR reports Left basilar opacity, possibly pleural fluid, with atelectasis and/or pneumonia. Recommend follow-up/further evaluation. General Information General Current Food NPO Consistancy Dentition Upper & Lower Dentures Patient Orientation Person,Place,Time Ability to Follow Good Directions Communication Mild Impairment Ability Dysphagia:Food Presentation Evaluation Food Type Pureed,Mechanical Soft,Liquid,Pudding Dysphagia Evaluation Pt was seen sitting upright in chair for CSE. She was A Summary &Ox3. MBSS completed in April had pt on MS ground with thin liquids and no straws; 2' results straws and regular solids were not assessed. Pt was administered all bolus consistency trials x2 to assess for consistency and/or fatigue. She was given the following with no overt s/sxs of aspiration: thin liquids (ice chip, spoonful, open cup sip, subsequent sips from open cup), pudding, pureed applesauce, mechanical soft ( nutrigrain bar.) No residual observed in oral cavity. It is recommended she continue on previous diet that she was on in [place]. [employer] CHECKER to fu for diet tolerance. Stroke Dysphagia Assessment PHYSICIAN CERTIFICATION: I certify the specified therapy services for Heidi Tejeda are required, authorized, and reviewed every 30 days.
[2024-11-17] MEDS: APIXABAN 5MG TABLET 5 MG PO (20:19)
[2024-11-17] MEDS: LISINOPRIL 10MG TABLET 10 MG PO (20:19)
[2024-11-17] MEDS: DIVALPROEX 250MG (Delayed-Release) TABLET 250 MG PO (20:19)
[2024-11-17] MEDS: MELATONIN 5MG TABLET 5 MG PO (20:20)
[2024-11-18] VITALS: BP 144/76; PULSE 79; RESP 16; TEMP 36.4; O2SAT 97
[2024-11-18 04:00] VITALS: BP 163/78; PULSE 69; RESP 16; TEMP 36.4; O2SAT 97; BMI 25.7
[2024-11-18] MEDS: AMPICILLIN SODIUM/SULBACTAM 3 GM in 0.9 % SODIUM CHLORIDE 100 ML IV ×2 (04:57→08:59)
[2024-11-18] MEDS: UMECLIDINIUM/VILANTEROL 62.5/25MCG INHALER 1 PUFF IH (05:52)
[2024-11-18 07:18] LABS: Hematocrit 45.2 % (37.0-47.0); Hemoglobin 15.0 g/dL (12.2-16.2); Immature Granulocytes % 0.3 %; Mean Corpuscular HGB Conc 33.2 g/dL (31.8-35.4); Mean Corpuscular Hemoglobin 32.3 pg (27.0-31.2); Mean Corpuscular Volume 97.2 fl (81-99); Nucleated Red Blood Cells % 0 %; Platelet Count 840 K/mm3 (142-424); Red Blood Count 4.65 M/mm3 (4.20-5.40); Red Cell Distribution Width-SD 44.5 fL; White Blood Count 6.1 K/mm3 (4.8-10.8)
--- NOTE | 2024-11-18 07:23 | EXP.DC.SUM ---
General Admission date:: 11/16/24 Discharge date: 11/18/24 HPI HPI HPI: Patient is a 79-year-old female with past medical history of dementia, atrial fibrillation, who presents to the hospital from intermediate facility due to difficulty swallowing and aspiration. Patient at time of my evaluation appears confused and not able to provide reliable history, patient had swallow evaluation in the emergency department which the patient failed. Patient denied chest pain shortness of breath nausea vomiting diarrhea constipation. Hospital Course Hospital Course Hospital Course: Patient is a 79-year-old female with past medical history of dementia, atrial fibrillation, who presents to the hospital from intermediate facility due to difficulty swallowing and aspiration. Patient at time of my evaluation appears confused and not able to provide reliable history, patient had bedside swallow evaluation in the ED but unfortunately failed. Was admitted for UTI, suspected aspiration pneumonia, and speech evaluation. Review of chart shows that she was evaluated back in April with modified diet prescribed at that time. Modified barium showed residuals on the vallecula and dysfunction with swallowing. Has been working with speech at her intermediate. Evaluated by speech, continue current diet. Remained hemodynamically stable. Will discharge back to nursing facility for further care. Problems addressed as follows: Dysphagia Dementia Suspected aspiration pneumonia, ruled out Gram-negative UTI -CT chest shows left basilar opacity concerning for possible aspiration pneumonia. White count this morning however 6.5, on room air. No fever. Kidney function normal BUN 20, creatinine 1.0 on admission. Initiated on Levaquin for 1 dose and then transition to Unasyn. Will resume Levaquin based on previous urine cultures to cover for both potential infection of respiratory as well as identified urinary tract infection. Complete 5 days total of therapy. Culture still pending at discharge. - Given history of dysphagia, concerned that it is worsening. No other focal neurologic deficits. Will hold on MRI given CT with no acute findings - Speech therapy evaluated. Recommended continuing with mechanical soft chopped with thin liquids with no straw. No changes at this time to patient's dietary recommendations. Patient has done well since starting eating with no signs of choking. -Urine grossly abnormal, positive for nitrate, 3+ leuk esterase, white blood cells too numerous to count and 2+ bacteria. Growing gram-negative rods. Thrombocytosis Patient has chronic history of elevated platelets, platelets 913 on morning labs. No active signs of bleeding. Low concern for clot at this time. Resume home Eliquis twice daily History of atrial fibrillation History of hypertension - Resume lisinopril 10 mg twice daily -Resume home Lasix at discharge, Continue Eliquis 5 mg twice daily Mood disorder: Continue Lexapro 20 mg daily, Depakote 250 mg nightly, melatonin 5 mg nightly Exam Data for Last 24 hours Vital signs and Labs for Last 24 Hours: Temp Pulse Resp BP Pulse Ox O2 Del Method 97.5 F L 69 16 163/78 H 97 Room Air 11/18/24 04:00 11/18/24 04:00 11/18/24 04:00 11/18/24 04:00 11/18/24 04:00 11/18/24 06:28 Laboratory Results - last 24 hr 11/18/24 07:05: WBC 6.1, RBC 4.65, Hgb 15.0, Hct 45.2, MCV 97.2, MCH 32.3 H, MCHC 33.2, RDW 12.5, Plt Count 840 H, MPV 9.0, Neut % (Auto) 52.0, Lymph % (Auto) 25.7, [place] % (Auto) 15.9 H, Eos % (Auto) 4.6, Baso % (Auto) 1.5, Neut # (Auto) 3.2, Lymph # (Auto) 1.6, [place] # (Auto) 1.0, Eos # (Auto) 0.3, Baso # (Auto) 0.1 I & O for Last 24 hours: Intake & Output 11/15/24 11/16/24 11/17/24 11/18/24 23:59 23:59 23:59 23:59 Intake Total 520 / 520 100 / 100 Output Total 650 / 650 Balance -130 / -130 100 / 100 Weight 70.261 kg 70.035 kg 69.995 kg Constitutional Constitutional: no acute distress, chronically ill appearing and cooperative *Routine HEENT Exam Head: Present normocephalic Eye: Present EOMI and PERRL ENT: Present mucous membranes moist *Routine Neck Exam Neck: Present supple; Absent lymphadenopathy *Routine Respiratory Exam Respiratory: Present CTA bilaterally; Absent respiratory distress, stridor or wheezes *Routine Cardiovascular Exam Cardiovascular: Present RRR *Routine Abdominal Exam Abdominal: Present soft and normoactive bowel sounds; Absent tenderness *Routine Rectal Exam Patient deferred: visual exam *Routine Exam Patient deferred: external exam *Routine Extremities Exam Extremities: Absent cyanosis, clubbing or edema *Routine Skin Exam Skin: Present warm; Absent rash *Routine Neurological Exam Neurological: Present alert; Absent altered mental status Comments: Oriented to self only, appears at baseline mentation Results Data Completed and Pending Labs on day of discharge: Labs from last 24 hours 11/18/24 07:05 WBC 6.1 RBC 4.65 Hgb 15.0 Hct 45.2 MCV 97.2 MCH 32.3 H MCHC 33.2 RDW 12.5 Plt Count 840 H MPV 9.0 Neut % (Auto) 52.0 Lymph % (Auto) 25.7 [place] % (Auto) 15.9 H Eos % (Auto) 4.6 Baso % (Auto) 1.5 Neut # (Auto) 3.2 Lymph # (Auto) 1.6 [place] # (Auto) 1.0 Eos # (Auto) 0.3 Baso # (Auto) 0.1 DS: Diagnosis Discharge Diagnosis (1) Dysphagia: Status: Acute Code(s): R13.10 - Dysphagia, unspecified (2) Aspiration of food: Status: Acute Code(s): T17.928A - Food in respiratory tract, part unspecified causing other injury, initial encounter; W44.F3XA - Food entering into or through a natural orifice, initial encounter (3) Aspiration pneumonia: Status: Acute Code(s): J69.0 - Pneumonitis due to inhalation of food and vomit (4) Urinary tract infection: Status: Acute Code(s): N39.0 - Urinary tract infection, site not specified Meds Home Medications and Allergies Home Medications ?Medication ?Instructions ?Recorded ?Confirmed ?Type apixaban 5 mg tablet (Eliquis) 5 mg PO BID #60 tabs 12/05/22 11/16/24 Rx furosemide 20 mg tablet 20 mg PO DAILY #30 tabs 03/20/23 11/16/24 Rx bacitracin 500 unit/gram topical 1 applic topical Q12H 11/16/24 11/17/24 History ointment divalproex 250 mg tablet,delayed 250 mg PO HS 11/16/24 11/16/24 History release (Depakote) lisinopril 10 mg tablet 10 mg PO BID 11/16/24 11/16/24 History melatonin 3 mg tablet 3 mg PO HS 11/16/24 11/16/24 History nystatin 100,000 unit/gram topical 1 applic topical Q12H 11/16/24 11/16/24 History cream umeclidinium 62.5 mcg-vilanterol 1 inh inhalation DAILY 11/16/24 11/16/24 History 25 mcg/actuation powdr for inhalation acetaminophen 500 mg tablet 500 mg PO Q4HP PRN PAIN/FEVER 11/17/24 11/17/24 History calcium carbonate 500 mg PO Q6HP PRN Heartburn 11/17/24 11/17/24 History escitalopram oxalate 20 mg tablet 20 mg PO DAILY 11/17/24 11/17/24 History mineral oil-hydrophil petrolat 1 applic topical BID 11/17/24 11/17/24 History topical ointment pantoprazole 40 mg tablet,delayed 40 mg PO DAILY 11/17/24 11/17/24 History release zinc oxide 20 % topical paste 1 ea topical BID 11/17/24 11/17/24 History levofloxacin 750 mg tablet 750 mg PO 1100 3 days #3 tabs 11/18/24 Rx New Prescriptions to Start Prescriptions: levofloxacin Geraldo Rausch Allergies Allergy/AdvReac Type Severity Reaction Status Date / Time hydrocodone Allergy Verified 12/15/23 13:20 Discharge Plan Disposition Patient Disposition: [facility] Condition: Good Discharge Order Discharge Orders: Discharge Order (Routine); Ordered 11/18/24 Ordered By: Geraldo Rausch Follow up Plan Prescriptions/Medication Reconciliation: New levofloxacin 750 mg Tablet 750 mg PO 1100 3 Days Qty: 3 0RF Continued Eliquis 5 mg tablet 5 mg PO BID Qty: 60 2RF furosemide 20 mg tablet 20 mg PO DAILY Qty: 30 2RF bacitracin 500 unit/gram ointment 1 applic TOPICAL Q12H melatonin 3 mg tablet 3 mg PO HS nystatin 100,000 unit/gram cream 1 applic TOPICAL Q12H lisinopril 10 mg tablet 10 mg PO BID umeclidinium-vilanterol 62.5-25 mcg/actuation Blister With Device 1 inh INHALATION DAILY divalproex [Depakote] 250 mg tablet,delayed release (DR/EC) 250 mg PO HS acetaminophen 500 mg Tablet 500 mg PO Q4HP PRN (Reason: PAIN/FEVER) escitalopram oxalate 20 mg tablet 20 mg PO DAILY pantoprazole 40 mg tablet,delayed release (DR/EC) 40 mg PO DAILY mineral oil-hydrophil petrolat Ointment 1 applic TOPICAL BID calcium carbonate 500 mg calcium (1,250 mg) Tablet,Chewable 500 mg PO Q6HP PRN (Reason: Heartburn) zinc oxide 20 % Paste 1 ea TOPICAL BID Problem Reconciliation Problems Reviewed?: Yes Patient Discharge Instructions ACTIVITY: Continue current activity DIET: continue same diet Patient Instructions: Urinary Tract Infection, DI for Esophageal Dysphagia, Stop Light Infection Print Language: French Providers Primary Care Provider: Provider,Referral Admit Provider: Geraldo Rausch Attending Provider: Geraldo Rausch
[2024-11-18 08:00] VITALS: BP 159/83; PULSE 65; RESP 20; TEMP 35.9; O2SAT 95
[2024-11-18] MEDS: ESCITALOPRAM 20MG TABLET 20 MG PO (08:51)
[2024-11-18] MEDS: LISINOPRIL 10MG TABLET 10 MG PO ×2 (08:51→22:03)
[2024-11-18] MEDS: APIXABAN 5MG TABLET 5 MG PO ×2 (08:51→22:03)
[2024-11-18 12:00] VITALS: BP 146/72; PULSE 89; RESP 16; TEMP 36.5; O2SAT 95
[2024-11-18 12:08] LABS: Chloride 102 mmol/L (98-107); Potassium 4.8 mmoL/L (3.5-5.1); Sodium 137 mmol/L (136-145)
[2024-11-18 12:11] LABS: Blood Urea Nitrogen 16 mg/dl (7-17); Creatinine Clearance Estimated 42 mL/min (50-200); Creatinine,Serum 1.20 mg/dl (0.52-1.04); Estimated Glomerular Filt Rate 43 ml/min (>60); GFR (African American) 52 ML/MIN (>60)
[2024-11-18 12:12] LABS: Anion Gap 15.8 mEq/L (5-15); Calcium 9.2 mg/dl (8.4-10.2); Carbon Dioxide 24 mmol/L (22.0-30.0); Glucose 92 mg/dl (74-100)
[2024-11-18 16:00] VITALS: BP 147/79; PULSE 78; RESP 18; TEMP 36.4; O2SAT 96
[2024-11-18] MEDS: MELATONIN 5MG TABLET 5 MG PO (22:03)
[2024-11-18] MEDS: DIVALPROEX 250MG (Delayed-Release) TABLET 250 MG PO (22:03)
[2024-11-18 22:12] VITALS: BP 132/65; PULSE 80; RESP 18; TEMP 36.8; O2SAT 94
[2024-11-19] VITALS: BP 135/65; PULSE 71; RESP 12; TEMP 36.4; O2SAT 97
--- NOTE | 2024-11-19 05:14 | PC.NURSE ---
patient has rested well this shift. patient still awaiting transport back to snf. no complaints voiced. bed alarm on and functioning. call button in reach.
--- NOTE | 2024-11-19 06:18 | PC.NURSE ---
PT LEFT FLOOR WITH EMS AT THIS TIME
== END 2024-11-19 06:18 ==
LOC: ER 20:44 → 2ND 20:55
PROVIDERS: Internal Medicine; Admitting Provider Internal Medicine Adolescent Medicine; Emergency Provider Student in an Organized Health Care Education/Training Program; Visit Provider Internal Medicine Adolescent Medicine
DX: T17.928A Food in respiratory tract, part unspecified causing other injury, initial encounter (principal); R13.10 Dysphagia, unspecified; N39.0 Urinary tract infection, site not specified; J69.0 Pneumonitis due to inhalation of food and vomit; F03.90 Unspecified dementia, unspecified severity, without behavioral disturbance, psychotic disturbance, mood disturbance, and anxiety; D75.839 Thrombocytosis, unspecified; I48.91 Unspecified atrial fibrillation; F39 Unspecified mood [affective] disorder; I25.10 Atherosclerotic heart disease of native coronary artery without angina pectoris; I13.0 Hypertensive heart and chronic kidney disease with heart failure and stage 1 through stage 4 chronic kidney disease, or unspecified chronic kidney disease; K21.9 Gastro-esophageal reflux disease without esophagitis; N18.9 Chronic kidney disease, unspecified; F41.9 Anxiety disorder, unspecified; F32.9 Major depressive disorder, single episode, unspecified; J44.9 Chronic obstructive pulmonary disease, unspecified; I50.9 Heart failure, unspecified; M81.0 Age-related osteoporosis without current pathological fracture; R91.8 Other nonspecific abnormal finding of lung field; Z87.891 Personal history of nicotine dependence; Z86.73 Personal history of transient ischemic attack (TIA), and cerebral infarction without residual deficits; Z88.5 Allergy status to narcotic agent; Z79.01 Long term (current) use of anticoagulants; Z79.899 Other long term (current) drug therapy; W44.F3XA Food entering into or through a natural orifice, initial encounter
CPT/HCPCS: 36415; 70450; 71045; 80048; 80053; 81001; 85025; 86803; 87086; 87088; 87186; 87389; 89220; 92610; 94640; 96365; 96366; 96376; 97162; 97166; 97530; 99284; G0378; J0295; J1644